=== PATIENT | female | born 1995 | race Caucasian/White ===

== ENCOUNTER → 2017-01-09 | Outpatient (CLI) | payer MEDICAID | LOC: MW.CHOBGYN 14:36 | PROVIDERS: ATTEND Obstetrics & Gynecology | DX: Z34.90 Encounter for supervision of normal pregnancy, unspecified, unspecified trimester (principal) | CPT/HCPCS: 87070; 87491; 87591; G0145 ==

== ENCOUNTER 2017-03-26 00:14 | Emergency (ER) | payer MEDICAID ==
[2017-03-26] MEDS ORDERED: levETIRAcetam Soln 500 MG/5 ML Cup PO ONE (01:27)
[2017-03-26 02:08] LABS: CHLORIDE,CL 112 mmol/L (98-110); SODIUM,NA 141 mmol/L (136-146)
--- NOTE | 2017-03-26 02:21 | EDM.PDOC ---
ED HPI GENERAL MEDICAL PROBLEM - General Chief Complaint: General Stated Complaint: HAD SEIZURE- NOW BACK AND NECK HURT Time Seen by Provider: 03/26/17 01:20 Source of Information: Reports: Patient, Family, RN - History of Present Illness INITIAL COMMENTS - FREE TEXT/NARRATIVE: She had a generalized seizure at home. it lasted about 20 seconds. She has a history of tonic clonic seizures since childhood and stopped taking medicines about two years ago. She has generalized tonic clonic seizures now about 3 x week in the evening. mild posterior upper back muscle pain. - Related Data Allergies Allergy/AdvReac Type Severity Reaction Status Date / Time cinnamon Allergy unsure Verified 03/15/16 00:13 codeine Allergy Anaphylactic Verified 04/10/16 23:21 Shock peanut Allergy Anaphylactic Verified 04/10/16 23:21 Shock Penicillins Allergy Cannot Verified 08/13/16 23:20 Remember Home Meds: Home Meds . 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) Neurological History: Reports: Seizure Psychiatric History: Reports: Anxiety, Bipolar, PTSD - Infectious Disease History Infectious Disease History: Reports: None - Past Surgical History HEENT Surgical History: Reports: None Social & Family History - Family History Family Medical History: Unobtainable - Tobacco Use Smoking Status *Q: Never Smoker Second Hand Smoke Exposure: No - Caffeine Use Caffeine Use: Reports: None - Recreational Drug Use Recreational Drug Use: No ED ROS GENERAL - Review of Systems Review Of Systems: See Below Constitutional: Denies: Fever, Chills HEENT: Denies: Dental Pain Respiratory: Denies: Shortness of Breath, Cough, Sputum Cardiovascular: Denies: Chest Pain GI/Abdominal: Denies: Abdominal Pain, Black Stool, Difficulty Swallowing, Hematemesis, Hematochezia, Nausea ED EXAM, GENERAL - Physical Exam Exam: See Below General Appearance: Alert, No Apparent Distress Nose: Normal Inspection Head: Atraumatic, Normocephalic Neck: Supple, Non-Tender Respiratory/Chest: No Respiratory Distress, Lungs Clear, Normal Breath Sounds Cardiovascular: Regular Rate, Rhythm, No Edema GI/Abdominal: Soft, Non-Tender Neurological: CN II-XII Intact, Normal Cognition Psychiatric: Normal Mood Course - Vital Signs Last Recorded V/S: Last Vital Signs Temp 97.9 F 03/26/17 01:12 Pulse 98 03/26/17 01:12 Resp 18 03/26/17 01:12 BP 135/73 03/26/17 01:12 Pulse Ox 98 03/26/17 01:12 - Orders/Labs/Meds Orders: Active Orders 24 hr Category Date Time Status COMPREHENSIVE METABOLIC PN,CMP [CHEM] Stat Lab 03/26/17 01:40 Results MAGNESIUM [CHEM] Stat Lab 03/26/17 01:40 Results PROLACTIN [CHEM] Stat Lab 03/26/17 01:40 Results Labs: Laboratory Tests 03/26/17 03/26/17 03/26/17 Range/Units 01:40 01:40 01:40 WBC 7.70 (4.0-11.0) K/uL RBC 4.73 (4.30-5.90) M/uL Hgb 10.6 L (12.0-16.0) g/dL Hct 34.6 L (36.0-46.0) % MCV 73.2 L (80.0-98.0) fL MCH 22.4 L (27.0-32.0) pg MCHC 30.6 L (31.0-37.0) g/dL RDW Std Deviation 45.9 (28.0-62.0) fl RDW Coeff of Volodymyr 17 H (11.0-15.0) % Plt Count 287 (150-400) K/uL MPV 10.30 (7.40-12.00) fL Neut % (Auto) 48.6 (48.0-80.0) % Lymph % (Auto) 39.4 (16.0-40.0) % [place] % (Auto) 9.4 (0.0-15.0) % Eos % (Auto) 2.3 (0.0-7.0) % Baso % (Auto) 0.3 (0.0-1.5) % Neut # (Auto) 3.8 (1.4-5.7) K/uL Lymph # (Auto) 3.0 H (0.6-2.4) K/uL [place] # (Auto) 0.7 (0.0-0.8) K/uL Eos # (Auto) 0.2 (0.0-0.7) K/uL Baso # (Auto) 0.0 (0.0-0.1) K/uL Nucleated RBC % 0.0 /100WBC Nucleated RBCs # 0 K/uL Sodium 141 (136-146) mmol/L Potassium 3.9 (3.5-5.1) mmol/L Chloride 112 H (98-110) mmol/L Carbon Dioxide 19 L (21-31) mmol/L BUN 13 (6.0-23.0) mg/dL Creatinine 0.7 (0.6-1.5) mg/dL Est Cr Clr Drug Dosing 91.32 mL/min Estimated GFR (MDRD) > 60.0 ml/min Glucose 97 (60-110) mg/dL Calcium 9.4 (8.8-10.8) mg/dL Magnesium 2.0 (1.5-2.3) mEq/L Total Bilirubin 0.3 (0.1-1.5) mg/dL AST 17 (5-40) IU/L ALT 13 (8-54) IU/L Alkaline Phosphatase 86 (40-150) Total Protein 7.1 (6.0-8.0) g/dL Albumin 4.4 (3.5-5.0) g/dL Globulin 2.7 (2.0-3.5) g/dL Albumin/Globulin Ratio 1.6 (1.3-2.8) HCG, Qual NEGATIVE (NEG) Meds: Medications Discontinued Medications Generic Name Dose Route Start Last Admin Trade Name Nuris PRN Reason Stop Dose Admin Levetiracetam 500 mg 03/26/17 01:27 03/26/17 01:45 Keppra PO 03/26/17 01:28 500 mg NOW ONE Administration - Re-Assessments/Exams Free Text/Narrative Re-Assessment/Exam: 03/26/17 02:20 we discussed avoiding certain risks such as driving and swimming. Departure - Departure Time of Disposition: 02:20 Disposition: Home, Self-Care 01 Condition: good Clinical Impression: Seizure disorder - Discharge Information Forms: ED Department Discharge Additional Instructions: [facility] po bid avoid whilst on keppra - My Orders Last 24 Hours: My Active Orders 03/26/17 01:40 COMPREHENSIVE METABOLIC PN,CMP [CHEM] Stat MAGNESIUM [CHEM] Stat PROLACTIN [CHEM] Stat - Assessment/Plan Last 24 Hours: My Active Orders 03/26/17 01:40 COMPREHENSIVE METABOLIC PN,CMP [CHEM] Stat MAGNESIUM [CHEM] Stat PROLACTIN [CHEM] Stat
[2017-03-26 05:49] VITALS: BP 121/71
== END 2017-03-26 02:37 | disposition home or self-care (01) ==
LOC: MW.ED 00:14
DX: G40.909 Epilepsy, unspecified, not intractable, without status epilepticus (principal); F41.9 Anxiety disorder, unspecified; F31.9 Bipolar disorder, unspecified; Z88.0 Allergy status to penicillin; Z88.5 Allergy status to narcotic agent; Z91.010 Allergy to peanuts
CPT/HCPCS: 36415; 80053; 83735; 84146; 84703; 85025; 99283; A9270; 99284

== ENCOUNTER 2017-03-29 00:58 | Emergency (ER) | payer MEDICAID ==
--- NOTE | 2017-03-29 01:17 | EDM.PDOC ---
ED HPI GENERAL MEDICAL PROBLEM - General Chief Complaint: Behavioral/Psych Stated Complaint: THOUGHTS Time Seen by Provider: 03/29/17 01:11 - History of Present Illness INITIAL COMMENTS - FREE TEXT/NARRATIVE: HISTORY AND PHYSICAL: History of present illness: Patient 1-year-old female history of seizure disorder and depression who presents with a concern of suicidal ideation she's been making suicidal threats for the last week her he is here with her. There's been no attempt she denies any ingestion or other concern. Review of systems: As per history of present illness and below otherwise all systems reviewed and negative. Past medical history: As per history of present illness and as reviewed below otherwise noncontributory. Surgical history: As per history of present illness and as reviewed below otherwise noncontributory. Social history: No reported history of drug or alcohol abuse. Family history: As per history of present illness and as reviewed below otherwise noncontributory. Physical exam: HEENT: Atraumatic, normocephalic, pupils reactive, negative for conjunctival pallor or scleral icterus, mucous membranes moist, throat clear, neck supple, nontender, trachea midline. Lungs: Clear to auscultation, breath sounds equal bilaterally, chest nontender. Heart: S1S2, regular, negative for clicks, rubs, or JVD. Abdomen: Soft, nondistended, nontender. Negative for masses or hepatosplenomegaly. Negative for costovertebral tenderness. Pelvis: Stable nontender. Genitourinary: Deferred. Rectal: Deferred. Extremities: Atraumatic, negative for cords or calf pain. Neurovascular unremarkable. Neuro: Awake, alert, oriented. Cranial nerves II through XII unremarkable. Cerebellum unremarkable. Motor and sensory unremarkable throughout. Exam nonfocal. Diagnostics: CBC CMP hCG urine drug screen EtOH Therapeutics: None Impression: #1 depressive episode with suicidal ideation Definitive disposition and diagnosis as appropriate pending reevaluation and review of above. - Related Data Allergies Allergy/AdvReac Type Severity Reaction Status Date / Time cinnamon Allergy unsure Verified 03/29/17 01:08 codeine Allergy Anaphylactic Verified 03/29/17 01:08 Shock peanut Allergy Anaphylactic Verified 03/29/17 01:08 Shock Penicillins Allergy Cannot Verified 03/29/17 01:08 Remember Home Meds: Home Meds Albuterol [IJD: Ventolin HFA] 1 - 2 puff INH Q4H PRN 03/29/17 [History] levETIRAcetam [Levetiracetam] 500 mg PO BID 03/29/17 [History] Past Medical History HEENT History: Reports: None Cardiovascular History: Reports: None Respiratory History: Reports: Asthma Gastrointestinal History: Reports: None Genitourinary History: Reports: None 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: , 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 , 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 ED EXAM, GENERAL - Physical Exam Exam: See Below (See dictation) Course - Vital Signs Last Recorded V/S: Last Vital Signs Temp 36.6 C 03/29/17 01:04 Pulse 92 03/29/17 01:04 Resp 18 03/29/17 01:04 BP 132/84 03/29/17 01:04 Pulse Ox 98 03/29/17 01:04 - Orders/Labs/Meds Orders: Active Orders 24 hr Category Date Time Status EKG 12 Lead [EKG Documentation Completion] [RC] STAT Care 03/29/17 01:13 Active ACETAMINOPHEN [CHEM] Stat Lab 03/29/17 01:11 Ordered CBC WITH AUTO DIFF [HEME] Stat Lab 03/29/17 01:11 Ordered COMPREHENSIVE METABOLIC PN,CMP [CHEM] Stat Lab 03/29/17 01:11 Ordered DRUG SCREEN, URINE [URCHEM] Stat Lab 03/29/17 01:11 Uncollected ETHANOL BLOOD MEDICAL [CHEM] Stat Lab 03/29/17 01:11 Ordered FREE T3 [REF] Stat Lab 03/29/17 01:14 Ordered HCG QUALITATIVE,URINE [URCHEM] Stat Lab 03/29/17 01:11 Uncollected MAGNESIUM [CHEM] Stat Lab 03/29/17 01:14 Ordered SALICYLATE [CHEM] Stat Lab 03/29/17 01:11 Ordered T4 FREE [CHEM] Stat Lab 03/29/17 01:11 Ordered TSH [CHEM] Stat Lab 03/29/17 01:11 Ordered UA W/MICROSCOPIC [URIN] Stat Lab 03/29/17 01:14 Uncollected Departure - Departure Time of Disposition: Disposition: DC/Tfer to Psych Hosp/Unit 65 Condition: good Clinical Impression: Depressive disorder - Discharge Information Forms: ED Department Discharge - My Orders Last 24 Hours: My Active Orders 03/29/17 01:11 ACETAMINOPHEN [CHEM] Stat CBC WITH AUTO DIFF [HEME] Stat COMPREHENSIVE METABOLIC PN,CMP [CHEM] Stat DRUG SCREEN, URINE [URCHEM] Stat ETHANOL BLOOD MEDICAL [CHEM] Stat HCG QUALITATIVE,URINE [URCHEM] Stat SALICYLATE [CHEM] Stat T4 FREE [CHEM] Stat TSH [CHEM] Stat 03/29/17 01:13 EKG 12 Lead [EKG Documentation Completion] [RC] STAT 03/29/17 01:14 FREE T3 [REF] Stat MAGNESIUM [CHEM] Stat UA W/MICROSCOPIC [URIN] Stat - Assessment/Plan Last 24 Hours: My Active Orders 03/29/17 01:11 ACETAMINOPHEN [CHEM] Stat CBC WITH AUTO DIFF [HEME] Stat COMPREHENSIVE METABOLIC PN,CMP [CHEM] Stat DRUG SCREEN, URINE [URCHEM] Stat ETHANOL BLOOD MEDICAL [CHEM] Stat HCG QUALITATIVE,URINE [URCHEM] Stat SALICYLATE [CHEM] Stat T4 FREE [CHEM] Stat TSH [CHEM] Stat 03/29/17 01:13 EKG 12 Lead [EKG Documentation Completion] [RC] STAT 03/29/17 01:14 FREE T3 [REF] Stat MAGNESIUM [CHEM] Stat UA W/MICROSCOPIC [URIN] Stat
[2017-03-29 01:53] LABS: CHLORIDE,CL 112 mmol/L (98-110); SODIUM,NA 140 mmol/L (136-146)
[2017-03-29 02:03] LABS: ACETAMINOPHEN < 3.0 ug/mL
[2017-03-29 02:41] VITALS: BP 128/78
== END 2017-03-29 02:14 ==
LOC: MW.ED 00:58
DX: F32.9 Major depressive disorder, single episode, unspecified (principal); R45.851 Suicidal ideations; F41.9 Anxiety disorder, unspecified; J45.909 Unspecified asthma, uncomplicated; G40.909 Epilepsy, unspecified, not intractable, without status epilepticus; Z88.0 Allergy status to penicillin; Z91.010 Allergy to peanuts; Z88.8 Allergy status to other drugs, medicaments and biological substances; Z88.5 Allergy status to narcotic agent; F31.9 Bipolar disorder, unspecified; F43.10 Post-traumatic stress disorder, unspecified
CPT/HCPCS: 36415; 80053; 80305; 81001; 81025; 83735; 84443; 84481; 85025; 93005; 99285; G0480

== ENCOUNTER 2017-04-24 11:50 | Emergency (ER) | payer MEDICAID ==
[2017-04-24] MEDS ORDERED: diphenhydrAMINE 50 MG/ML SDV IVPUSH ONE (11:51)
[2017-04-24] MEDS ORDERED: methylPREDNISolone Sodium Succinate 125 MG/2 ML SDV IVPUSH ONE (11:51)
[2017-04-24] MEDS ORDERED: EPINEPHrine 1:1000 1 MG/1 ML Amp SUBCUT ONE (12:02)
[2017-04-24] MEDS ORDERED: EPINEPHrine 1:1000 1 MG/ML SDV IM ONE (12:02)
[2017-04-24] MEDS: Sodium Chloride 0.9% 1,000 ML IV ONE ×2 (12:08→13:13)
[2017-04-24] MEDS ORDERED: LORazepam 2 MG/ML MDV IVPUSH ONE (12:10)
--- NOTE | 2017-04-24 12:59 | EDM.PDOC ---
ED HPI GENERAL MEDICAL PROBLEM - General Chief Complaint: General Stated Complaint: SOB Time Seen by Provider: 04/24/17 11:55 Source of Information: Reports: Patient History Limitations: Reports: No Limitations - History of Present Illness INITIAL COMMENTS - FREE TEXT/NARRATIVE: History of present illness: 21-year-old female comes in indicating that she had been exposed to an allergen. Patient indicates she is allergic to peanuts and had eaten some ice cream which she subsequently discovered had peanuts in it. She indicates she feels shortness of breath itching and feels like she is having some difficulty swallowing her own saliva. Review of systems: As per history of present illness and below otherwise all systems reviewed and negative. Past medical history: As per history of present illness and as reviewed below otherwise noncontributory. Surgical history: As per history of present illness and as reviewed below otherwise noncontributory. Social history: No reported history of drug or alcohol abuse. Family history: As per history of present illness and as reviewed below otherwise noncontributory. Physical exam: HEENT: Atraumatic, normocephalic, pupils reactive, negative for conjunctival pallor or scleral icterus, mucous membranes moist, throat clear, neck supple, nontender, trachea midline. Lungs: Clear to auscultation, breath sounds equal bilaterally, chest nontender. Heart: S1S2, regular, negative for clicks, rubs, or JVD. Abdomen: Soft, nondistended, nontender. Negative for masses or hepatosplenomegaly. Negative for costovertebral tenderness. Pelvis: Stable nontender. Genitourinary: Deferred. Rectal: Deferred. Extremities: Atraumatic, negative for cords or calf pain. Neurovascular unremarkable. Neuro: Awake, alert, oriented. Cranial nerves II through XII unremarkable. Cerebellum unremarkable. Motor and sensory unremarkable throughout. Exam nonfocal. Patient presents tachypneic and tachycardic as well as diaphoretic. Patient is anxious and breathing very shallowly, but can be redirected to breathe slower and deeper. Patient is clearly anxious and has a history of anxiety and panic attacks, as well as seizure disorder. Diagnostics: [] Therapeutics: [Solu-Medrol, Benadryl, appendectomy, normal saline, Ativan] Impression: [Anxiety, shortness of breath] Plan: [Establish care with a PCP avoid allergens] Definitive disposition and diagnosis as appropriate pending reevaluation and review of above. - Related Data Allergies Allergy/AdvReac Type Severity Reaction Status Date / Time cinnamon Allergy unsure Verified 03/29/17 01:08 codeine Allergy Anaphylactic Verified 03/29/17 01:08 Shock peanut Allergy Anaphylactic Verified 03/29/17 01:08 Shock Penicillins Allergy Cannot Verified 03/29/17 01:08 Remember Home Meds: Home Meds Albuterol [IJD: Ventolin HFA] 1 - 2 puff INH Q4H PRN 03/29/17 [History] levETIRAcetam [Levetiracetam] 500 mg PO BID 03/29/17 [History] Past Medical History HEENT History: Reports: None Cardiovascular History: Reports: None Respiratory History: Reports: Asthma Gastrointestinal History: Reports: None Genitourinary History: Reports: None 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: , 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 , 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) Neurological History: Reports: Seizure Other Neuro History: Epilepsy Psychiatric History: Reports: Anxiety, Bipolar, Depression, PTSD - Infectious Disease History Infectious Disease History: Reports: None - Past Surgical History HEENT Surgical History: Reports: None Social & Family History - Family History Family Medical History: Noncontributory - Tobacco Use Smoking Status *Q: Never Smoker Second Hand Smoke Exposure: Yes - Caffeine Use Caffeine Use: Reports: Tea - Recreational Drug Use Recreational Drug Use: No ED ROS GENERAL - Review of Systems Review Of Systems: See Below (See history of present illness) ED EXAM, GENERAL - Physical Exam Exam: See Below (See history of present illness) Course - Vital Signs Last Recorded V/S: Last Vital Signs Temp 36.6 C 04/24/17 11:56 Pulse 140 H 04/24/17 11:56 Resp 48 H 04/24/17 11:56 BP 149/87 H 04/24/17 11:56 Pulse Ox 100 04/24/17 11:56 - Orders/Labs/Meds Meds: Medications Discontinued Medications Generic Name Dose Route Start Last Admin Trade Name Freq PRN Reason Stop Dose Admin Diphenhydramine HCl 50 mg 04/24/17 11:51 04/24/17 12:03 Benadryl IVPUSH 04/24/17 11:52 50 mg ONETIME ONE Administration Epinephrine HCl 0.3 mg 04/24/17 12:02 04/24/17 12:05 Adrenalin 1:1000 IM 04/24/17 12:03 Not Given ONETIME ONE Epinephrine HCl 0.3 mg 04/24/17 12:02 04/24/17 12:03 Adrenalin 1:1000 SUBCUT 04/24/17 12:03 0.3 mg ONETIME ONE Administration Sodium Chloride 1,000 mls @ 999 mls/hr 04/24/17 12:06 04/24/17 13:13 Normal Saline IV 04/24/17 13:06 999 mls/hr .Bolus ONE Administration Lorazepam 1 mg 04/24/17 12:10 04/24/17 12:15 Ativan IVPUSH 04/24/17 12:11 1 mg ONETIME ONE Administration Methylprednisolone Sodium Succinate 125 mg 04/24/17 11:51 04/24/17 12:03 Solu-Medrol IVPUSH 04/24/17 11:52 125 mg ONETIME ONE Administration Departure - Departure Time of Disposition: 13:58 Disposition: Home, Self-Care 01 Condition: Good Clinical Impression: Anxiety, Dyspnea - Discharge Information Instructions: Allergies Additional Instructions: The following information is given to patients seen in the emergency department who are being discharged to home. This information is to outline your options for follow-up care. We provide all patients seen in our emergency department with a follow-up referral. The need for follow-up, as well as the timing and circumstances, are variable depending upon the specifics of your emergency department visit. If you don't have a primary care physician on staff, we will provide you with a referral. We always advise you to contact your personal physician following an emergency department visit to inform them of the circumstance of the visit and for follow-up with them and/or the need for any referrals to a consulting specialist. The emergency department will also refer you to a specialist when appropriate. This referral assures that you have the opportunity for follow-up care with a specialist. All of these measure are taken in an effort to provide you with optimal care, which includes your follow-up. Under all circumstances we always encourage you to contact your private physician who remains a resource for coordinating your care. When calling for follow-up care, please make the office aware that this follow-up is from your recent emergency room visit. If for any reason you are refused follow-up, please contact the [facility] Emergency Department at and asked to speak to the emergency department charge nurse. Follow-up with primary care provider in 1-2 days Return to ED as needed as discussed
[2017-04-24 14:21] VITALS: BP 114/74
== END 2017-04-24 14:30 | disposition home or self-care (01) ==
LOC: MW.ED 11:50
DX: F41.9 Anxiety disorder, unspecified (principal); J45.909 Unspecified asthma, uncomplicated; F31.9 Bipolar disorder, unspecified; G40.909 Epilepsy, unspecified, not intractable, without status epilepticus; Z88.0 Allergy status to penicillin; Z88.5 Allergy status to narcotic agent; Z91.010 Allergy to peanuts; Z91.018 Allergy to other foods
CPT/HCPCS: 96361; 96372; 96374; 96375; 99285; J0171; J1200; J2060; J2930; J7040; 99283

== ENCOUNTER 2017-05-31 23:44 | Emergency (ER) | payer MEDICAID ==
--- NOTE | 2017-05-31 23:47 | EDM.PDOC ---
ED HPI GENERAL MEDICAL PROBLEM - General Chief Complaint: Behavioral/Psych Stated Complaint: SUICIDAL Time Seen by Provider: 05/31/17 23:47 Source of Information: Reports: Patient - History of Present Illness INITIAL COMMENTS - FREE TEXT/NARRATIVE: HISTORY AND PHYSICAL: History of present illness: []Patient presents with suicide attempt by ingestion indeterminant time, his she admits to taking 5-10 Pristiq tablets throughout the day in an attempt to kill herself unknown dosing at time of dictation I'm not sure who called the ambulance she did arrive by ambulance as she also had a knife and was threatening to cut her wrists She has previous suicide attempt or ideation and was transferred to [facility] and subsequently admitted Currently she is alert and oriented in no distress no fever nausea vomiting chills sweats no chest pain shortness breath headache dizziness or palpitation no bowel or urine symptoms History of anxiety and depression on Pristiq Review of systems: As per history of present illness and below otherwise all systems reviewed and negative. Past medical history: As per history of present illness and as reviewed below otherwise noncontributory. Surgical history: As per history of present illness and as reviewed below otherwise noncontributory. Social history: No reported history of drug or alcohol abuse. Family history: As per history of present illness and as reviewed below otherwise noncontributory. Physical exam: HEENT: Atraumatic, normocephalic, pupils reactive, negative for conjunctival pallor or scleral icterus, mucous membranes moist, throat clear, neck supple, nontender, trachea midline. Lungs: Clear to auscultation, breath sounds equal bilaterally, chest nontender. Heart: S1S2, regular, negative for clicks, rubs, or JVD. Abdomen: Soft, nondistended, nontender. Negative for masses or hepatosplenomegaly. Negative for costovertebral tenderness. Pelvis: Stable nontender. Genitourinary: Deferred. Rectal: Deferred. Extremities: Atraumatic, negative for cords or calf pain. Neurovascular unremarkable. Neuro: Awake, alert, oriented. Cranial nerves II through XII unremarkable. Cerebellum unremarkable. Motor and sensory unremarkable throughout. Exam nonfocal. Diagnostics: []IIIc workup EKG Chest 1 view Therapeutics: []None Initially patient to be transferred to [facility] in mind that however they did not have any adult female beds Hence Dr. REYNA as psychiatrist on-call at [facility] in [place] has accepted care patient be transferred with a 24-hour hold in place Impression: []Suicide ideation Martha at side attempt by ingestion Threatening to cut her wrists Previous psychiatric admission History of anxiety and depression Definitive disposition and diagnosis as appropriate pending reevaluation and review of above. - Related Data Allergies Allergy/AdvReac Type Severity Reaction Status Date / Time cinnamon Allergy unsure Verified 05/31/17 23:51 codeine Allergy Anaphylactic Verified 05/31/17 23:51 Shock peanut Allergy Anaphylactic Verified 05/31/17 23:51 Shock Penicillins Allergy Cannot Verified 05/31/17 23:51 Remember Home Meds: Home Meds Albuterol [IJD: Ventolin HFA] 1 - 2 puff INH Q4H PRN 03/29/17 [History] levETIRAcetam [Levetiracetam] 500 mg PO BID 03/29/17 [History] Desvenlafaxine Succinate [Desvenlafaxine Succinate ER] 1 tab PO DAILY 05/31/17 [ History] Past Medical History HEENT History: Reports: None Cardiovascular History: Reports: None Respiratory History: Reports: Asthma Gastrointestinal History: Reports: None Genitourinary History: Reports: None [employer] History: Reports: , Therapeutic , 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) Neurological History: Reports: Seizure Other Neuro History: Epilepsy Psychiatric History: Reports: Anxiety, Bipolar, Depression, PTSD - Infectious Disease History Infectious Disease History: Reports: None - Past Surgical History HEENT Surgical History: Reports: None Social & Family History - Family History Family Medical History: Noncontributory - Tobacco Use Smoking Status *Q: Never Smoker Second Hand Smoke Exposure: Yes - Caffeine Use Caffeine Use: Reports: Tea - Recreational Drug Use Recreational Drug Use: No ED ROS GENERAL - Review of Systems Review Of Systems: ROS reveals no pertinent complaints other than HPI. ED EXAM, GENERAL - Physical Exam Exam: See Below Course - Vital Signs Last Recorded V/S: Last Vital Signs Temp 36.6 C 05/31/17 23:44 Pulse 109 H 05/31/17 23:44 Resp 20 05/31/17 23:44 BP 140/88 05/31/17 23:44 Pulse Ox 98 05/31/17 23:44 - Orders/Labs/Meds Orders: Active Orders 24 hr Category Date Time Status EKG Documentation Completion [RC] STAT Care 05/31/17 23:46 Active Chest 1V Frontal [CR] Stat Exams 05/31/17 23:46 Ordered Labs: Laboratory Tests 05/31/17 05/31/17 05/31/17 Range/Units 23:57 23:57 23:57 WBC 8.34 (4.0-11.0) K/uL RBC 4.98 (4.30-5.90) M/uL Hgb 11.3 L (12.0-16.0) g/dL Hct 36.4 (36.0-46.0) % MCV 73.1 L (80.0-98.0) fL MCH 22.7 L (27.0-32.0) pg MCHC 31.0 (31.0-37.0) g/dL RDW Std Deviation 45.2 (28.0-62.0) fl RDW Coeff of Volodymyr 17 H (11.0-15.0) % Plt Count 271 (150-400) K/uL MPV 10.10 (7.40-12.00) fL Neut % (Auto) 69.2 (48.0-80.0) % Lymph % (Auto) 23.7 (16.0-40.0) % Webster % (Auto) 6.2 (0.0-15.0) % Eos % (Auto) 0.7 (0.0-7.0) % Baso % (Auto) 0.2 (0.0-1.5) % Neut # (Auto) 5.8 H (1.4-5.7) K/uL Lymph # (Auto) 2.0 (0.6-2.4) K/uL Webster # (Auto) 0.5 (0.0-0.8) K/uL Eos # (Auto) 0.1 (0.0-0.7) K/uL Baso # (Auto) 0.0 (0.0-0.1) K/uL Nucleated RBC % 0.0 /100WBC Nucleated RBCs # 0 K/uL Sodium 141 (136-146) mmol/L Potassium 3.6 (3.5-5.1) mmol/L Chloride 112 H (98-110) mmol/L Carbon Dioxide 20 L (21-31) mmol/L BUN 14 (6.0-23.0) mg/dL Creatinine 0.8 (0.6-1.5) mg/dL Est Cr Clr Drug Dosing 79.90 mL/min Estimated GFR (MDRD) > 60.0 ml/min Glucose 92 (60-110) mg/dL Calcium 9.6 (8.8-10.8) mg/dL Total Bilirubin 0.3 (0.1-1.5) mg/dL AST 17 (5-40) IU/L ALT 15 (8-54) IU/L Alkaline Phosphatase 79 (40-150) Troponin I < 0.10 (0.0-0.29) NG/ML Total Protein 7.6 (6.0-8.0) g/dL Albumin 4.5 (3.5-5.0) g/dL Globulin 3.1 (2.0-3.5) g/dL Albumin/Globulin Ratio 1.5 (1.3-2.8) TSH 3rd Generation 1.18 (0.47-5.0) uIU/mL Urine Color Urine Appearance Urine pH (5.0-8.0) Ur Specific [place] (1.001-1.035) Urine Protein (NEGATIVE) mg/dL Urine Glucose (UA) (NEGATIVE) mg/dL Urine Ketones (NEGATIVE) mg/dL Urine Occult Blood (NEGATIVE) Urine Nitrite (NEGATIVE) Urine Bilirubin (NEGATIVE) Urine Urobilinogen (<2.0) EU/dL Ur Leukocyte Esterase (NEGATIVE) Urine RBC (0-2/HPF) Urine WBC (0-5/HPF) Ur Epithelial Cells (NONE-FEW) Urine Bacteria (NEGATIVE) Urine HCG, Qual (NEGATIVE) Salicylates < 5.0 (0-20) mg/dL Urine Opiates Screen (NEGATIVE) Ur Oxycodone Screen (NEGATIVE) Urine Methadone Screen (NEGATIVE) Acetaminophen < 3.0 ug/mL Ur Barbiturates Screen (NEGATIVE) Ur Phencyclidine Scrn (NEGATIVE) Ur Amphetamine Screen (NEGATIVE) U Methamphetamines Scrn (NEGATIVE) U Benzodiazepines Scrn (NEGATIVE) U Cocaine Metab Screen (NEGATIVE) U Marijuana (THC) Screen (NEGATIVE) Ethyl Alcohol < 10.0 mg/dL 06/01/17 06/01/17 06/01/17 Range/Units 00:22 00:22 00:22 WBC (4.0-11.0) K/uL RBC (4.30-5.90) M/uL Hgb (12.0-16.0) g/dL Hct (36.0-46.0) % MCV (80.0-98.0) fL MCH (27.0-32.0) pg MCHC (31.0-37.0) g/dL RDW Std Deviation (28.0-62.0) fl RDW Coeff of Volodymyr (11.0-15.0) % Plt Count (150-400) K/uL MPV (7.40-12.00) fL Neut % (Auto) (48.0-80.0) % Lymph % (Auto) (16.0-40.0) % Webster % (Auto) (0.0-15.0) % Eos % (Auto) (0.0-7.0) % Baso % (Auto) (0.0-1.5) % Neut # (Auto) (1.4-5.7) K/uL Lymph # (Auto) (0.6-2.4) K/uL Webster # (Auto) (0.0-0.8) K/uL Eos # (Auto) (0.0-0.7) K/uL Baso # (Auto) (0.0-0.1) K/uL Nucleated RBC % /100WBC Nucleated RBCs # K/uL Sodium (136-146) mmol/L Potassium (3.5-5.1) mmol/L Chloride (98-110) mmol/L Carbon Dioxide (21-31) mmol/L BUN (6.0-23.0) mg/dL Creatinine (0.6-1.5) mg/dL Est Cr Clr Drug Dosing mL/min Estimated GFR (MDRD) ml/min Glucose (60-110) mg/dL Calcium (8.8-10.8) mg/dL Total Bilirubin (0.1-1.5) mg/dL AST (5-40) IU/L ALT (8-54) IU/L Alkaline Phosphatase (40-150) Troponin I (0.0-0.29) NG/ML Total Protein (6.0-8.0) g/dL Albumin (3.5-5.0) g/dL Globulin (2.0-3.5) g/dL Albumin/Globulin Ratio (1.3-2.8) TSH 3rd Generation (0.47-5.0) uIU/mL Urine Color YELLOW Urine Appearance CLEAR Urine pH 5.5 (5.0-8.0) Ur Specific [place] >= 1.030 (1.001-1.035) Urine Protein 30 (NEGATIVE) mg/dL Urine Glucose (UA) NEGATIVE (NEGATIVE) mg/dL Urine Ketones 15 H (NEGATIVE) mg/dL Urine Occult Blood LARGE H (NEGATIVE) Urine Nitrite NEGATIVE (NEGATIVE) Urine Bilirubin NEGATIVE (NEGATIVE) Urine Urobilinogen 0.2 (<2.0) EU/dL Ur Leukocyte Esterase NEGATIVE (NEGATIVE) Urine RBC 40-50 (0-2/HPF) Urine WBC 0-3 (0-5/HPF) Ur Epithelial Cells OCCASIONAL (NONE-FEW) Urine Bacteria FEW (NEGATIVE) Urine HCG, Qual NEGATIVE (NEGATIVE) Salicylates (0-20) mg/dL Urine Opiates Screen NEGATIVE (NEGATIVE) Ur Oxycodone Screen NEGATIVE (NEGATIVE) Urine Methadone Screen NEGATIVE (NEGATIVE) Acetaminophen ug/mL Ur Barbiturates Screen NEGATIVE (NEGATIVE) Ur Phencyclidine Scrn NEGATIVE (NEGATIVE) Ur Amphetamine Screen NEGATIVE (NEGATIVE) U Methamphetamines Scrn NEGATIVE (NEGATIVE) U Benzodiazepines Scrn NEGATIVE (NEGATIVE) U Cocaine Metab Screen NEGATIVE (NEGATIVE) U Marijuana (THC) Screen NEGATIVE (NEGATIVE) Ethyl Alcohol mg/dL Departure - Departure Time of Disposition: 00:54 Disposition: DC/Tfer to Other 70 Condition: Fair Clinical Impression: Suicide attempt by drug ingestion - Discharge Information Forms: ED Department Discharge - My Orders Last 24 Hours: My Active Orders 05/31/17 23:46 EKG Documentation Completion [RC] STAT Chest 1V Frontal [CR] Stat - Assessment/Plan Last 24 Hours: My Active Orders 05/31/17 23:46 EKG Documentation Completion [RC] STAT Chest 1V Frontal [CR] Stat
[2017-06-01 00:25] LABS: CHLORIDE,CL 112 mmol/L (98-110); SODIUM,NA 141 mmol/L (136-146)
[2017-06-01 00:33] LABS: ACETAMINOPHEN < 3.0 ug/mL
[2017-06-01 01:52] VITALS: BP 122/82
--- NOTE | 2017-06-01 15:21 | CR ---
EXAM DATE: 05/31/17 PATIENT'S AGE: 21 Patient: DAVID LIRIANO Facility: [place], [place] Site . Site : 1995 Study: XRay Chest [id number]/[id number] 12:53:29 AM Ordering Physician: Mary Hull Final Report: Indication: Pain Technique: Chest 1 view Comparison: None Findings/Impression: Cardiovascular and mediastinum: Heart size and vasculature are normal in caliber and appearance. Mediastinum is within normal limits. Lungs and pleural space: Lungs are clear. No sign of infiltrate or mass. No sign of pleural effusion. No pneumothorax. Bones and soft tissues: No significant findings. Dictated by Soledad Mccarty MD @ Jun 01 2017 1:07AM (Electronic Signature) Report Signed by Proxy. ENRIQUE
== END 2017-06-01 01:40 | disposition other institution (70) ==
LOC: MW.ED 23:44
DX: T43.212A Poisoning by selective serotonin and norepinephrine reuptake inhibitors, intentional self-harm, initial encounter (principal); J45.909 Unspecified asthma, uncomplicated; Z91.010 Allergy to peanuts; Z88.0 Allergy status to penicillin; Z91.018 Allergy to other foods
CPT/HCPCS: 36415; 71010; 80053; 80305; 81001; 81025; 84443; 84484; 85025; 93005; 99285; G0480

== ENCOUNTER 2017-06-04 22:16 | Emergency (ER) | payer MEDICAID ==
[2017-06-04] MEDS ORDERED: Sodium Chloride 0.9% 2.5 ML Syringe FLUSH PRN (22:27)
[2017-06-04] MEDS ORDERED: Ondansetron 4 MG/2 ML SDV IVPUSH ONE (22:27)
[2017-06-04] MEDS ORDERED: Sodium Chloride 0.9% 10 ML Syringe FLUSH PRN (22:27)
[2017-06-04] MEDS ORDERED: Sodium Chloride 0.9% 1,000 ML IV ONE (22:27)
[2017-06-04] MEDS ORDERED: Ondansetron 4 MG/2 ML SDV ONE (22:28)
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
[2017-06-04] MEDS: levETIRAcetam Soln 500 MG/5 ML Cup PO ONE (22:59)
[2017-06-04 23:04] LABS: CHLORIDE,CL 117 mmol/L (98-110); SODIUM,NA 146 mmol/L (136-146)
[2017-06-04 23:12] LABS: ACETAMINOPHEN < 3.0 ug/mL
[2017-06-05] MEDS: levETIRAcetam Soln 500 MG/5 ML Cup PO ONE (00:30)
--- NOTE | 2017-06-05 01:23 | EDM.PDOCBH ---
ED HPI GENERAL MEDICAL PROBLEM - General Chief Complaint: Behavioral/Psych Stated Complaint: UNK Time Seen by Provider: 06/04/17 22:26 - History of Present Illness INITIAL COMMENTS - FREE TEXT/NARRATIVE: HISTORY AND PHYSICAL: History of present illness: The patient is a 21-year-old female with a known history of seizures and depression with 2 prior transfers documented on the computer from here for suicidal ideation/attempt the last one being 4 days ago when she was transferred to [facility]; patient presents today via EMS with police after they were dispatched for depression and inappropriate statements and texts. According to the patient she was transferred from here to [facility] on May 31 and spent 3 days of the institution where they stopped her Pristiq increased her Keppra and did not restart her on any antidepressants and she has a follow-up appointment scheduled for behavioral health outpatient care on Thursday and also has a follow-up appointment to address her seizure disorder. According to police they have been at her house 2 times today after being contacted by boyfriend and friend regarding her possible increasing depression and potential inappropriate statements regarding her future. According to the patient she has no suicidal or homicidal ideation and is very stressed by not having a job and issues with her boyfriend. According to the patient she was trying to get some of her medication out of his car when he closed the door on her hand and she complains of left hand and elbow pain. The ED. The patient denies taking any overdose of pills or trying to hurt herself today. The patient admits to me that she has made statements that could be misconstrued either via telephone or be attacks but she exhibits concern about her well- being and she states that she is excited to start outpatient care and be able to talk about some of the issues that are going on in her life. She is concerned about having another seizure and wants to take her evening dose of medications. She denies any drug use tonight and says that she has no social network here other than her boyfriend and some of his associates. The police liaison at bedside with the officer responding both times to her house and states that she did exhibit emotional behavior and bordered on making very inappropriate statements which is why he was concerned as well as his firearms assembly supervisor. In light of her recent history she was brought here for evaluation for further care. According to the police liaison she did have a brief seizure in the back of his car prior to coming here and EMS aching her up to bring her here. She is currently somewhat quiet in the ED. Review of systems: As per history of present illness and below otherwise all systems reviewed and negative. Past medical history: As per history of present illness and as reviewed below otherwise noncontributory. Surgical history: As per history of present illness and as reviewed below otherwise noncontributory. Social history: No reported history of drug or alcohol abuse. Family history: As per history of present illness and as reviewed below otherwise noncontributory. Physical exam: Gen.: Well-developed well-nourished female who is nontoxic and initially when I saw the patient she was not super conversational as she had just finished having a seizure. I did return and have lengthy conversations with this patient once she was more awake and alert. Patient did have some dry heaves when I saw her. Affect: The patient is very interactive and talkative conversational and hopeful for the future with respect to her health care and connecting with a counselor on Thursday. She exhibits no suicidal or homicidal ideation on my evaluation. HEENT: Atraumatic, normocephalic, pupils reactive, negative for conjunctival pallor or scleral icterus, mucous membranes moist, throat clear, neck supple, nontender, trachea midline. Lungs: Clear to auscultation, breath sounds equal bilaterally, chest nontender. Heart: S1S2, regular rate and rhythm no overt murmurs Abdomen: Soft, nondistended, nontender. Negative for masses or hepatosplenomegaly. Negative for costovertebral tenderness. Pelvis: Stable nontender. Genitourinary: Deferred. Rectal: Deferred. Extremities: Atraumatic except for the dorsal aspect of the left hand where there is a very superficial abrasion and some soft tissue swelling and tenderness without palpable bony deformities. There is a linear superficial scratch on the volar surface of the left forearm which the patient states is several days old. The patient also complains of tenderness to the elbow but not the forearm area and there are no palpable bony deformities here. All other remedies have full range of motion without defects or deficits and the legs are , negative for cords or calf pain. Neurovascular unremarkable. Neuro: Awake, alert, oriented. Cranial nerves II through XII unremarkable. Cerebellum unremarkable. Motor and sensory unremarkable throughout. Exam nonfocal. Skin: No evidence of any rashes or lesions are seen overtly and turgor is normal. Please see the extremity exam for changes there. Diagnostics: EKG CBC CMP aspirin Tylenol and alcohol levels UA UDS UCG x-ray of the left hand and elbow TSH was performed on May 31 and was within normal limits at 1.18 so will not be repeated today Therapeutics: IV O2 monitor IV fluids, patient was offered Zofran as she was having dry heaves earlier but refuses, Keppra by mouth so the patient can get her evening dose. Please note that initially the patient also refuses taking the Keppra that we have ordered only because it is this suspension and not a pill and she feels it will make her vomit. But subsequently she agreed to take it and did have some gagging and dry heaves. Patient now tells me that at [facility] they did increase her dose to 1000 mg and she will take the second 500 mg when she goes home. Patient is aware of x-ray results. When the patient initially arrived and police told me about some of tonight's events and I did not have a chance to have a conversation with the patient I did contact [facility] and speak to the psychiatrist on-call who was not able to offer me much information about her prior visit there. I told him that if she needed to be transferred I would be recontacting them. I had lengthy discussions with both the police liaison that brought her here as well his his firearms assembly supervisor. In light of some of the things that may have occurred in the field that were not witnessed by myself or this officer at bedside the states real estate associate attorney was contacted and it was felt that the decision for transfer or discharge could be made by me and my evaluation of this patient. I feel that the patient is exhibiting no suicidal ideation is a fact trying to exhibit hopefulness for the future. She doesn't fact have many stressors in her life which we discussed and I told her that she needs to return if she is feeling the stressors are altering her ability and perspective for her future. The patient does live alone and the police will conduct a safety check in several hours which the patient is agreeable to an open 2. Impression: Depression with emotional reaction stable, left hand contusion stable Definitive disposition and diagnosis as appropriate pending reevaluation and review of above. - Related Data Allergies Allergy/AdvReac Type Severity Reaction Status Date / Time cinnamon Allergy unsure Verified 06/04/17 22:58 codeine Allergy Anaphylactic Verified 06/04/17 22:58 Shock peanut Allergy Anaphylactic Verified 06/04/17 22:58 Shock Penicillins Allergy Cannot Verified 06/04/17 22:58 Remember Home Meds: Home Meds Albuterol [IJD: Ventolin HFA] 1 - 2 puff INH Q4H PRN 03/29/17 [History] levETIRAcetam [Levetiracetam] 500 mg PO BID 03/29/17 [History] Desvenlafaxine Succinate [Desvenlafaxine Succinate ER] 1 tab PO DAILY 05/31/17 [ History] Past Medical History HEENT History: Reports: None Cardiovascular History: Reports: None Respiratory History: Reports: Asthma Gastrointestinal History: Reports: None Genitourinary History: Reports: None FACILITIES OFFICER History: Reports: , Therapeutic , 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) Other OB/BYN History: 02/04/17, on bc now- last depo shot 2 wks ago Musculoskeletal History: Reports: None Neurological History: Reports: Seizure, 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) Other Neuro History: Epilepsy Psychiatric History: Reports: Anxiety, Bipolar, Depression, PTSD Endocrine/Metabolic History: Reports: None Hematologic History: Reports: None Immunologic History: Reports: None Oncologic (Cancer) History: Reports: None Dermatologic History: Reports: None - Infectious Disease History Infectious Disease History: Reports: None - Past Surgical History Head Surgeries/Procedures: Reports: None HEENT Surgical History: Reports: None Musculoskeletal Surgical History: Reports: None Social & Family History - Family History Family Medical History: Noncontributory Other Dermatologic Family History: pt adopted, unknown fam hx - Tobacco Use Smoking Status *Q: Never Smoker Second Hand Smoke Exposure: Yes - Caffeine Use Caffeine Use: Reports: None - Recreational Drug Use Recreational Drug Use: No ED ROS GENERAL - Review of Systems Review Of Systems: ROS reveals no pertinent complaints other than HPI. ED EXAM, BEHAVIORAL HEALTH - Physical Exam Exam: See Below (See dictation) COURSE, BEHAVIORAL HEALTH COMP - Course Vital Signs: Last Vital Signs Temp 36.4 C 06/05/17 00:10 Pulse 90 06/05/17 00:10 Resp 16 06/05/17 00:10 BP 118/75 06/05/17 00:10 Pulse Ox 100 06/05/17 00:10 Orders, Labs, Meds: Active Orders 24 hr Category Date Time Status Cardiac Monitoring [RC] . DIRECTED Care 06/04/17 22:27 Active EKG Documentation Completion [RC] STAT Care 06/04/17 22:27 Active Oxygen Therapy, ED [RC] ASDIRECTED Care 06/04/17 22:27 Active Pulse Oximetry [RC] ASDIRECTED Care 06/04/17 22:27 Active Elbow 2V Lt [CR] Stat Exams 06/04/17 22:29 Taken Hand 2V Lt [CR] Stat Exams 06/04/17 22:29 Taken Sodium Chloride 0.9% [Saline Flush] Med 06/04/17 22:27 Active 10 ml FLUSH ASDIRECTED PRN Sodium Chloride 0.9% [Saline Flush] Med 06/04/17 22:27 Active 2.5 ml FLUSH ASDIRECTED PRN levETIRAcetam [Keppra] Med 06/05/17 22:35 Once 500 mg PO ONETIME ONE Saline Lock Insert [OM.PC] Stat Oth 06/04/17 22:27 Ordered Medication Orders Levetiracetam (Keppra) 500 mg PO ONETIME ONE Stop: 06/05/17 22:36 Sodium Chloride (Saline Flush) 10 ml FLUSH ASDIRECTED PRN PRN Reason: Keep Vein Open Sodium Chloride (Saline Flush) 2.5 ml FLUSH ASDIRECTED PRN PRN Reason: Keep Vein Open Laboratory Tests 06/04/17 06/04/17 06/04/17 Range/Units 22:35 22:35 22:48 WBC 9.38 (4.0-11.0) K/uL RBC 4.73 (4.30-5.90) M/uL Hgb 10.8 L (12.0-16.0) g/dL Hct 34.5 L (36.0-46.0) % MCV 72.9 L (80.0-98.0) fL MCH 22.8 L (27.0-32.0) pg MCHC 31.3 (31.0-37.0) g/dL RDW Std Deviation 45.1 (28.0-62.0) fl RDW Coeff of Volodymyr 17 H (11.0-15.0) % Plt Count 274 (150-400) K/uL MPV 10.20 (7.40-12.00) fL Neut % (Auto) 75.8 (48.0-80.0) % Lymph % (Auto) 17.2 (16.0-40.0) % Hopkins % (Auto) 5.9 (0.0-15.0) % Eos % (Auto) 0.9 (0.0-7.0) % Baso % (Auto) 0.2 (0.0-1.5) % Neut # (Auto) 7.1 H (1.4-5.7) K/uL Lymph # (Auto) 1.6 (0.6-2.4) K/uL Hopkins # (Auto) 0.6 (0.0-0.8) K/uL Eos # (Auto) 0.1 (0.0-0.7) K/uL Baso # (Auto) 0.0 (0.0-0.1) K/uL Nucleated RBC % 0.0 /100WBC Nucleated RBCs # 0 K/uL Sodium 146 (136-146) mmol/L Potassium 3.3 L (3.5-5.1) mmol/L Chloride 117 H (98-110) mmol/L Carbon Dioxide 19 L (21-31) mmol/L BUN 10 (6.0-23.0) mg/dL Creatinine 0.7 (0.6-1.5) mg/dL Est Cr Clr Drug Dosing 91.32 mL/min Estimated GFR (MDRD) > 60.0 ml/min Glucose 102 (60-110) mg/dL Calcium 9.1 (8.8-10.8) mg/dL Total Bilirubin 0.4 (0.1-1.5) mg/dL AST 18 (5-40) IU/L ALT 14 (8-54) IU/L Alkaline Phosphatase 74 (40-150) Total Protein 7.2 (6.0-8.0) g/dL Albumin 4.4 (3.5-5.0) g/dL Globulin 2.8 (2.0-3.5) g/dL Albumin/Globulin Ratio 1.6 (1.3-2.8) Urine Color Urine Appearance Urine pH (5.0-8.0) Ur Specific [place] (1.001-1.035) Urine Protein (NEGATIVE) mg/dL Urine Glucose (UA) (NEGATIVE) mg/dL Urine Ketones (NEGATIVE) mg/dL Urine Occult Blood (NEGATIVE) Urine Nitrite (NEGATIVE) Urine Bilirubin (NEGATIVE) Urine Urobilinogen (<2.0) EU/dL Ur Leukocyte Esterase (NEGATIVE) Urine RBC (0-2/HPF) Urine WBC (0-5/HPF) Ur Epithelial Cells (NONE-FEW) Urine Bacteria (NEGATIVE) Urine Mucus (NONE-MOD) Urine HCG, Qual (NEGATIVE) Salicylates < 5.0 (0-20) mg/dL Urine Opiates Screen NEGATIVE (NEGATIVE) Ur Oxycodone Screen NEGATIVE (NEGATIVE) Urine Methadone Screen NEGATIVE (NEGATIVE) Acetaminophen < 3.0 ug/mL Ur Barbiturates Screen NEGATIVE (NEGATIVE) Ur Phencyclidine Scrn NEGATIVE (NEGATIVE) Ur Amphetamine Screen NEGATIVE (NEGATIVE) U Methamphetamines Scrn NEGATIVE (NEGATIVE) U Benzodiazepines Scrn NEGATIVE (NEGATIVE) U Cocaine Metab Screen NEGATIVE (NEGATIVE) U Marijuana (THC) Screen NEGATIVE (NEGATIVE) Ethyl Alcohol < 10.0 mg/dL 06/04/17 06/04/17 Range/Units 22:48 22:48 WBC (4.0-11.0) K/uL RBC (4.30-5.90) M/uL Hgb (12.0-16.0) g/dL Hct (36.0-46.0) % MCV (80.0-98.0) fL MCH (27.0-32.0) pg MCHC (31.0-37.0) g/dL RDW Std Deviation (28.0-62.0) fl RDW Coeff of Volodymyr (11.0-15.0) % Plt Count (150-400) K/uL MPV (7.40-12.00) fL Neut % (Auto) (48.0-80.0) % Lymph % (Auto) (16.0-40.0) % Hopkins % (Auto) (0.0-15.0) % Eos % (Auto) (0.0-7.0) % Baso % (Auto) (0.0-1.5) % Neut # (Auto) (1.4-5.7) K/uL Lymph # (Auto) (0.6-2.4) K/uL Hopkins # (Auto) (0.0-0.8) K/uL Eos # (Auto) (0.0-0.7) K/uL Baso # (Auto) (0.0-0.1) K/uL Nucleated RBC % /100WBC Nucleated RBCs # K/uL Sodium (136-146) mmol/L Potassium (3.5-5.1) mmol/L Chloride (98-110) mmol/L Carbon Dioxide (21-31) mmol/L BUN (6.0-23.0) mg/dL Creatinine (0.6-1.5) mg/dL Est Cr Clr Drug Dosing mL/min Estimated GFR (MDRD) ml/min Glucose (60-110) mg/dL Calcium (8.8-10.8) mg/dL Total Bilirubin (0.1-1.5) mg/dL AST (5-40) IU/L ALT (8-54) IU/L Alkaline Phosphatase (40-150) Total Protein (6.0-8.0) g/dL Albumin (3.5-5.0) g/dL Globulin (2.0-3.5) g/dL Albumin/Globulin Ratio (1.3-2.8) Urine Color YELLOW Urine Appearance CLEAR Urine pH 6.0 (5.0-8.0) Ur Specific [place] >= 1.030 (1.001-1.035) Urine Protein 30 (NEGATIVE) mg/dL Urine Glucose (UA) NEGATIVE (NEGATIVE) mg/dL Urine Ketones TRACE H (NEGATIVE) mg/dL Urine Occult Blood LARGE H (NEGATIVE) Urine Nitrite NEGATIVE (NEGATIVE) Urine Bilirubin NEGATIVE (NEGATIVE) Urine Urobilinogen 0.2 (<2.0) EU/dL Ur Leukocyte Esterase NEGATIVE (NEGATIVE) Urine RBC 50-75 H (0-2/HPF) Urine WBC 0-2 (0-5/HPF) Ur Epithelial Cells RARE (NONE-FEW) Urine Bacteria RARE (NEGATIVE) Urine Mucus LIGHT (NONE-MOD) Urine HCG, Qual NEGATIVE (NEGATIVE) Salicylates (0-20) mg/dL Urine Opiates Screen (NEGATIVE) Ur Oxycodone Screen (NEGATIVE) Urine Methadone Screen (NEGATIVE) Acetaminophen ug/mL Ur Barbiturates Screen (NEGATIVE) Ur Phencyclidine Scrn (NEGATIVE) Ur Amphetamine Screen (NEGATIVE) U Methamphetamines Scrn (NEGATIVE) U Benzodiazepines Scrn (NEGATIVE) U Cocaine Metab Screen (NEGATIVE) U Marijuana (THC) Screen (NEGATIVE) Ethyl Alcohol mg/dL Medications Generic Name Dose Route Start Last Admin Trade Name Freq PRN Reason Stop Dose Admin Levetiracetam 500 mg 06/05/17 22:35 Keppra PO 06/05/17 22:36 ONETIME ONE Sodium Chloride 10 ml 06/04/17 22:27 Saline Flush FLUSH ASDIRECTED PRN Keep Vein Open Sodium Chloride 2.5 ml 06/04/17 22:27 Saline Flush FLUSH ASDIRECTED PRN Keep Vein Open Discontinued Medications Generic Name Dose Route Start Last Admin Trade Name Freq PRN Reason Stop Dose Admin Sodium Chloride 1,000 mls @ 999 mls/hr 06/04/17 22:27 06/04/17 22:32 Normal Saline IV 06/04/17 23:27 999 mls/hr STAT ONE Administration Levetiracetam 500 mg 06/04/17 22:52 06/04/17 22:59 Keppra PO 06/04/17 22:53 Not Given NOW ONE Ondansetron HCl 4 mg 06/04/17 22:27 06/04/17 22:32 Zofran IVPUSH 06/04/17 22:28 Not Given ONETIME ONE Ondansetron HCl Confirm 06/04/17 22:28 06/04/17 22:33 Zofran Administered 06/04/17 22:29 Not Given Dose 4 mg .ROUTE .STK-MED ONE Departure - Departure Time of Disposition: 01:23 Disposition: Home, Self-Care 01 Condition: Good Clinical Impression: Emotional stress reaction, Depressive disorder - Discharge Information Forms: ED Department Discharge Additional Instructions: The following information is given to patients seen in the emergency department who are being discharged to home. This information is to outline your options for follow-up care. We provide all patients seen in our emergency department with a follow-up referral. The need for follow-up, as well as the timing and circumstances, are variable depending upon the specifics of your emergency department visit. If you don't have a primary care physician on staff, we will provide you with a referral. We always advise you to contact your personal physician following an emergency department visit to inform them of the circumstance of the visit and for follow-up with them and/or the need for any referrals to a consulting specialist. The emergency department will also refer you to a specialist when appropriate. This referral assures that you have the opportunity for followup care with a specialist. All of these measure are taken in an effort to provide you with optimal care, which includes your followup. Under all circumstances we always encourage you to contact your private physician who remains a resource for coordinating your care. When calling for followup care, please make the office aware that this follow-up is from your recent emergency room visit. If for any reason you are refused follow-up, please contact the [facility] emergency department at and ask to speak to the emergency department charge nurse. [facility] Primary care- Internal Medicine and Family [address] [address] Please keep all your scheduled appointments for behavioral health and medical care as you have scheduled. Please take your seizure medications as prescribed and return to ER as needed and as discussed. - My Orders Last 24 Hours: My Active Orders 06/04/17 22:27 Cardiac Monitoring [RC] . DIRECTED EKG Documentation Completion [RC] STAT Oxygen Therapy, ED [RC] ASDIRECTED Pulse Oximetry [RC] ASDIRECTED Sodium Chloride 0.9% [Saline Flush] 10 ml FLUSH ASDIRECTED PRN Sodium Chloride 0.9% [Saline Flush] 2.5 ml FLUSH ASDIRECTED PRN Saline Lock Insert [OM.PC] Stat 06/04/17 22:29 Elbow 2V Lt [CR] Stat Hand 2V Lt [CR] Stat 06/05/17 22:35 levETIRAcetam [Keppra] 500 mg PO ONETIME ONE - Assessment/Plan Last 24 Hours: My Active Orders 06/04/17 22:27 Cardiac Monitoring [RC] . DIRECTED EKG Documentation Completion [RC] STAT Oxygen Therapy, ED [RC] ASDIRECTED Pulse Oximetry [RC] ASDIRECTED Sodium Chloride 0.9% [Saline Flush] 10 ml FLUSH ASDIRECTED PRN Sodium Chloride 0.9% [Saline Flush] 2.5 ml FLUSH ASDIRECTED PRN Saline Lock Insert [OM.PC] Stat 06/04/17 22:29 Elbow 2V Lt [CR] Stat Hand 2V Lt [CR] Stat 06/05/17 22:35 levETIRAcetam [Keppra] 500 mg PO ONETIME ONE
[2017-06-05 02:15] VITALS: BP 120/62
--- NOTE | 2017-06-05 18:12 | CR ---
EXAM DATE: 06/04/17 PATIENT'S AGE: 21 Patient: DAVID LIRIANO Facility: [place], [place] Site . Site : 1995 Study: XRay Extremity Left [id number]/[id number] 11:22:05 PM Ordering Physician: Aubrie Dimas Final Report: INDICATION: hand injury TECHNIQUE: Left hand 2 views. COMPARISON: None. FINDINGS: Bones: Alignment is normal. No fractures or bone lesions. Joint spaces: Unremarkable. Soft tissues: Unremarkable. IMPRESSION: Unremarkable left hand. Dictated by: Tobin Leiva MD @ 06/04/2017 23:51:11 (Electronic Signature) Report Signed by Proxy. [facility]
--- NOTE | 2017-06-05 18:14 | CR ---
EXAM DATE: 06/04/17 PATIENT'S AGE: 21 Patient: DAVID LIRIANO Facility: [place], [place] Site . Site : 1995 Study: XRay Extremity Left [id number]/[id number] 11:23:21 PM Ordering Physician: Aubrie Dimas Final Report: INDICATION: elbow injury TECHNIQUE: Left elbow 2 views. COMPARISON: None. FINDINGS: Bones: Alignment is normal. No fractures or bone lesions. Joint spaces: Unremarkable. Soft tissues: Unremarkable. IMPRESSION: Unremarkable left elbow. Dictated by: Tobin Leiva MD @ 06/04/2017 23:48:11 (Electronic Signature) Report Signed by Proxy. ENRIQUE
[2017-06-05] MEDS ORDERED: levETIRAcetam 500 MG Tab PO ONE (22:35)
== END 2017-06-05 00:56 | disposition home or self-care (01) ==
LOC: MW.ED 22:16
DX: S60.212A Contusion of left wrist, initial encounter (principal); F32.9 Major depressive disorder, single episode, unspecified; F43.9 Reaction to severe stress, unspecified; J45.909 Unspecified asthma, uncomplicated; Z88.5 Allergy status to narcotic agent; Z88.0 Allergy status to penicillin; Z91.010 Allergy to peanuts; Z79.899 Other long term (current) drug therapy; X58.XXXA Exposure to other specified factors, initial encounter
CPT/HCPCS: 29125; 36415; 73070; 73120; 80053; 80305; 81001; 81025; 85025; 93005; 99285; A9270; G0480; J7040; 99284

== ENCOUNTER 2017-06-12 12:44 | Emergency (ER) | payer MEDICAID ==
[2017-06-12] MEDS ORDERED: Sodium Chloride 0.9% 10 ML Syringe FLUSH PRN (12:55)
[2017-06-12] MEDS ORDERED: Sodium Chloride 0.9% 1,000 ML IV ONE (12:55)
[2017-06-12] MEDS ORDERED: Sodium Chloride 0.9% 2.5 ML Syringe FLUSH PRN (12:55)
--- NOTE | 2017-06-12 12:58 | EDM.PDOC ---
ED HPI GENERAL MEDICAL PROBLEM - General Chief Complaint: Neurological Problem Stated Complaint: UNK Time Seen by Provider: 06/12/17 12:52 - History of Present Illness INITIAL COMMENTS - FREE TEXT/NARRATIVE: HISTORY AND PHYSICAL: History of present illness: The patient is a 21-year-old female with known history of seizure disorder for which she takes Keppra, depressive disorder and [facility] which had been ongoing for a prolonged time---"8 minutes". According to EMS she had a total of 3 seizures and when the 3rd seizure restarted and they witnessed they gave Versed 2.5 mg IM at 12:30 PM. The patient did not have any loss of bowel or bladder. The patient is well known to me for being in the ED more for her depressive disorder but she was just recently at [facility] for a psychiatric transfer/evaluation and she says that she had her Keppra increased during that visit from 500-1000 mg twice a day. It is known by me through the police that she has had seizures since that admission in [place] and has presented intermittently to EMS and with police complaining of seizures as she lives alone but has declined transport. The patient had a seizure today and says that she did not take her morning medication but did take her meds last evening. She says she has had no systemic complaints of fever chills chest pain or shortness of breath and no abdominal pain or vomiting and denies . As a result of the seizure today and falling complains of posterior neck pain thoracic pain and bilateral back pain. She did not complain of a headache abdominal pain shortness of breath or anterior chest pain. She has no extremity complaints except for left wrist which she had a contusion that I evaluated with an x-ray on her last visit with me. She is not currently wearing the Velcro splint that I prescribed. The patient does not complain of any tongue injuries and says that she currently spelled water on herself when the seizure started she had no loss of bowel or bladder. The patient's ER visit with transfer to [facility] for psych care was on May 31 and the visit where I saw her for reevaluation of depression as well as the wrist contusion was June 04 she's not been seen here since that time. Please note that nursing remove the patient's leggings and thought that some of the wetness there was not water but had an odor of urine. Review of systems: As per history of present illness and below otherwise all systems reviewed and negative. Past medical history: As per history of present illness and as reviewed below otherwise noncontributory. Surgical history: As per history of present illness and as reviewed below otherwise noncontributory. Social history: No reported history of drug or alcohol abuse. Family history: As per history of present illness and as reviewed below otherwise noncontributory. Physical exam: General: Well-developed well-nourished female who presents on a backboard and C- spine immobilization but no collar. The backboard was removed during the course of my evaluation and a c-collar was immediately placed. She speaks softly and answers questions appropriately. HEENT: Atraumatic, normocephalic, pupils reactive, there is no evidence of any facial swelling deformities or tenderness, EOMs are intact, negative for conjunctival pallor or scleral icterus, mucous membranes moist, throat clear, neck supple, nontender, trachea midline. There is C-spine tenderness in the midline and bilateral sides throughout the course of the cervical spine and a collar was placed. The tongue has no lacerations or abrasions seen Lungs: Clear to auscultation, breath sounds equal bilaterally, chest nontender. Heart: S1S2, regular, negative for clicks, rubs, or JVD. Abdomen: Soft, nondistended, nontender. Negative for masses or hepatosplenomegaly. Negative for costovertebral tenderness. Pelvis: Stable nontender. No lateral hip tenderness Genitourinary: Deferred. Rectal: Deferred. Extremities: Atraumatic with full range of motion of all extremities but there is some mild tenderness of the dorsal aspect of the left wrist which is old and unchanged per the patient since I last evaluation of the wrist on June 04 with x -ray,, negative for cords or calf pain. Neurovascular unremarkable. Neuro: Awake, alert, oriented. Cranial nerves II through XII grossly unremarkable. Motor and sensory unremarkable throughout. Exam nonfocal. Back there are no midline step-offs or defects of the thoracic or lumbar spine but there is some thoracic tenderness along the midline as well as bilateral sides without any defects deformities or soft tissue injuries abrasions or ecchymosis seen. Skin: Normal turgor no evidence of any rashes or lesions and no diaphoresis Diagnostics: EKG CBC CMP EtOH level prolactin level UA UCG UDS Keppra level CT scan of the head spine and thoracic spine, chest x-ray Please note that Keppra level is a send out lab for us so I will not get that result today Therapeutics: IV IV fluid O2 monitor seizure precautions Keppra Patient has been stable in the ER with not any evidence of seizure activity. After the CT scan results are obtained I removed the c-collar. Patient was made aware of all testing results and she is currently giving us a urine sample for the urine testing. I will give her a gram of Keppra IV and I have organized transferred to [facility] in [place] for further evaluation by neurology for either new medication or titration of her medications for the seizures. She tells me that she has a seizure at least every day and that she has a long- standing history of seizures. She tells me she is compliant with her medications but it is unclear when I push her on that. Ambulance has been contacted and the case was discussed with the ER physician at [facility], Dr. Luo, at [id number] and he accepts the patient or transfer I will follow-up on the urine test prior to the patient's departure but should be noted that on prior recent visits her UDS was negative as was her UCG. Impression: Poorly controlled/intractable seizures Definitive disposition and diagnosis as appropriate pending reevaluation and review of above. Middle Back Pain Score (Numeric/FACES): 8 - Related Data Allergies Allergy/AdvReac Type Severity Reaction Status Date / Time cinnamon Allergy unsure Verified 06/12/17 13:02 codeine Allergy Anaphylactic Verified 06/12/17 13:02 Shock peanut Allergy Anaphylactic Verified 06/12/17 13:02 Shock Penicillins Allergy Cannot Verified 06/12/17 13:02 Remember Home Meds: Home Meds Albuterol [IJD: Ventolin HFA] 1 - 2 puff INH Q4H PRN 03/29/17 [History] levETIRAcetam [Levetiracetam] 500 mg PO BID 03/29/17 [History] LORazepam [Ativan] 1 mg PO BID 06/12/17 [History] Past Medical History HEENT History: Reports: None Cardiovascular History: Reports: None Respiratory History: Reports: Asthma Gastrointestinal History: Reports: None Genitourinary History: Reports: None 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: , 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 , 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) Other OB/BYN History: 02/04/17, on bc now- last depo shot 2 wks ago Musculoskeletal History: Reports: None Neurological History: Reports: Seizure, 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) Other Neuro History: Epilepsy Psychiatric History: Reports: Anxiety, Bipolar, Depression, PTSD Endocrine/Metabolic History: Reports: None Hematologic History: Reports: None Immunologic History: Reports: None Oncologic (Cancer) History: Reports: None Dermatologic History: Reports: None - Infectious Disease History Infectious Disease History: Reports: None - Past Surgical History Head Surgeries/Procedures: Reports: None HEENT Surgical History: Reports: None Musculoskeletal Surgical History: Reports: None Social & Family History - Family History Family Medical History: Noncontributory Other Dermatologic Family History: pt adopted, unknown fam hx - Tobacco Use Smoking Status *Q: Never Smoker Second Hand Smoke Exposure: Yes - Caffeine Use Caffeine Use: Reports: None - Recreational Drug Use Recreational Drug Use: No ED ROS GENERAL - Review of Systems Review Of Systems: ROS reveals no pertinent complaints other than HPI. ED EXAM, GENERAL - Physical Exam Exam: See Below (See dictation) Course - Vital Signs Last Recorded V/S: Last Vital Signs Temp 36.6 C 06/12/17 13:01 Pulse 86 06/12/17 13:01 Resp 18 06/12/17 13:01 BP 111/68 06/12/17 13:01 Pulse Ox 98 06/12/17 13:52 - Orders/Labs/Meds Orders: Active Orders 24 hr Category Date Time Status Cardiac Monitoring [RC] . DIRECTED Care 06/12/17 12:53 Active Communication Order [RC] STAT Care 06/12/17 12:53 Active EKG Documentation Completion [RC] STAT Care 06/12/17 12:53 Active Oxygen Therapy, ED [RC] ASDIRECTED Care 06/12/17 12:53 Active Pulse Oximetry [RC] ASDIRECTED Care 06/12/17 12:53 Active DRUG SCREEN, URINE [URCHEM] Stat Lab 06/12/17 12:54 Uncollected HCG QUALITATIVE,URINE [URCHEM] Stat Lab 06/12/17 12:54 Uncollected KEPPRA [REF] Stat Lab 06/12/17 13:07 Received UA W/MICROSCOPIC [URIN] Stat Lab 06/12/17 12:54 Uncollected Sodium Chloride 0.9% [Saline Flush] Med 06/12/17 12:55 Active 10 ml FLUSH ASDIRECTED PRN Sodium Chloride 0.9% [Saline Flush] Med 06/12/17 12:55 Active 2.5 ml FLUSH ASDIRECTED PRN levETIRAcetam [Keppra] 1,000 mg Med 06/12/17 14:42 Active Dextrose 5% in Water 100 ml IV ONETIME Saline Lock Insert [OM.PC] Stat Oth 06/12/17 12:53 Ordered Medication Orders Levetiracetam 1,000 mg/ (Dextrose/Water) 110 mls @ 440 mls/hr IV ONETIME ONE Stop: 06/12/17 14:56 Sodium Chloride (Saline Flush) 10 ml FLUSH ASDIRECTED PRN PRN Reason: Keep Vein Open Sodium Chloride (Saline Flush) 2.5 ml FLUSH ASDIRECTED PRN PRN Reason: Keep Vein Open Labs: Laboratory Tests 06/12/17 06/12/17 Range/Units 13:07 13:07 WBC 6.78 (4.0-11.0) K/uL RBC 4.41 (4.30-5.90) M/uL Hgb 10.0 L (12.0-16.0) g/dL Hct 32.5 L (36.0-46.0) % MCV 73.7 L (80.0-98.0) fL MCH 22.7 L (27.0-32.0) pg MCHC 30.8 L (31.0-37.0) g/dL RDW Std Deviation 46.1 (28.0-62.0) fl RDW Coeff of Volodymyr 17 H (11.0-15.0) % Plt Count 245 (150-400) K/uL MPV 10.50 (7.40-12.00) fL Neut % (Auto) 73.6 (48.0-80.0) % Lymph % (Auto) 19.9 (16.0-40.0) % [place] % (Auto) 6.0 (0.0-15.0) % Eos % (Auto) 0.4 (0.0-7.0) % Baso % (Auto) 0.1 (0.0-1.5) % Neut # (Auto) 5.0 (1.4-5.7) K/uL Lymph # (Auto) 1.4 (0.6-2.4) K/uL [place] # (Auto) 0.4 (0.0-0.8) K/uL Eos # (Auto) 0.0 (0.0-0.7) K/uL Baso # (Auto) 0.0 (0.0-0.1) K/uL Nucleated RBC % 0.0 /100WBC Nucleated RBCs # 0 K/uL Sodium 140 (136-146) mmol/L Potassium 3.7 (3.5-5.1) mmol/L Chloride 111 H (98-110) mmol/L Carbon Dioxide 20 L (21-31) mmol/L BUN 7 (6.0-23.0) mg/dL Creatinine 0.7 (0.6-1.5) mg/dL Est Cr Clr Drug Dosing 91.32 mL/min Estimated GFR (MDRD) > 60.0 ml/min Glucose 90 (60-110) mg/dL Calcium 9.1 (8.8-10.8) mg/dL Total Bilirubin 0.4 (0.1-1.5) mg/dL AST 13 (5-40) IU/L ALT 11 (8-54) IU/L Alkaline Phosphatase 65 (40-150) Total Protein 6.7 (6.0-8.0) g/dL Albumin 4.1 (3.5-5.0) g/dL Globulin 2.6 (2.0-3.5) g/dL Albumin/Globulin Ratio 1.6 (1.3-2.8) Prolactin 13 (0-27) ng/mL Ethyl Alcohol < 10.0 mg/dL Meds: Medications Generic Name Dose Route Start Last Admin Trade Name Freq PRN Reason Stop Dose Admin Levetiracetam 1,000 mg/ 110 mls @ 440 mls/hr 06/12/17 14:42 Dextrose/Water IV 06/12/17 14:56 ONETIME ONE Sodium Chloride 10 ml 06/12/17 12:55 Saline Flush FLUSH ASDIRECTED PRN Keep Vein Open Sodium Chloride 2.5 ml 06/12/17 12:55 Saline Flush FLUSH ASDIRECTED PRN Keep Vein Open Discontinued Medications Generic Name Dose Route Start Last Admin Trade Name Nuris PRN Reason Stop Dose Admin Sodium Chloride 1,000 mls @ 999 mls/hr 06/12/17 12:55 06/12/17 13:38 Normal Saline IV 06/12/17 13:55 999 mls/hr STAT ONE Administration Departure - Departure Time of Disposition: 14:51 Disposition: DC/Tfer to Acute Hospital 02 Condition: Good Clinical Impression: Intractable seizures - Discharge Information Forms: ED Department Discharge - My Orders Last 24 Hours: My Active Orders 06/12/17 12:53 Cardiac Monitoring [RC] . DIRECTED Communication Order [RC] STAT EKG Documentation Completion [RC] STAT Oxygen Therapy, ED [RC] ASDIRECTED Pulse Oximetry [RC] ASDIRECTED Saline Lock Insert [OM.PC] Stat 06/12/17 12:54 DRUG SCREEN, URINE [URCHEM] Stat HCG QUALITATIVE,URINE [URCHEM] Stat UA W/MICROSCOPIC [URIN] Stat 06/12/17 12:55 Sodium Chloride 0.9% [Saline Flush] 10 ml FLUSH ASDIRECTED PRN Sodium Chloride 0.9% [Saline Flush] 2.5 ml FLUSH ASDIRECTED PRN 06/12/17 13:07 KEPPRA [REF] Stat 06/12/17 14:42 levETIRAcetam [Keppra] 1,000 mg Dextrose 5% in Water 100 ml IV ONETIME - Assessment/Plan Last 24 Hours: My Active Orders 06/12/17 12:53 Cardiac Monitoring [RC] . DIRECTED Communication Order [RC] STAT EKG Documentation Completion [RC] STAT Oxygen Therapy, ED [RC] ASDIRECTED Pulse Oximetry [RC] ASDIRECTED Saline Lock Insert [OM.PC] Stat 06/12/17 12:54 DRUG SCREEN, URINE [URCHEM] Stat HCG QUALITATIVE,URINE [URCHEM] Stat UA W/MICROSCOPIC [URIN] Stat 06/12/17 12:55 Sodium Chloride 0.9% [Saline Flush] 10 ml FLUSH ASDIRECTED PRN Sodium Chloride 0.9% [Saline Flush] 2.5 ml FLUSH ASDIRECTED PRN 06/12/17 13:07 KEPPRA [REF] Stat 06/12/17 14:42 levETIRAcetam [Keppra] 1,000 mg Dextrose 5% in Water 100 ml IV ONETIME
[2017-06-12 13:41] LABS: CHLORIDE,CL 111 mmol/L (98-110); SODIUM,NA 140 mmol/L (136-146)
--- NOTE | 2017-06-12 13:46 | CR ---
EXAMINATION: Portable chest radiograph. HISTORY: Shortness of breath. FINDINGS: The trachea is midline. The cardiomediastinal silhouette is within normal limits. No pulmonary infil trates, effusions or pneumothorax. Osseous structures appear unremarkable. IMPRESSION: No acute cardiopulmonary process.
--- NOTE | 2017-06-12 14:24 | CT ---
EXAMINATION: Non contrast CT head. Coronal and sagittal reformats. HISTORY: Pain FINDINGS: No evidence of intra or extra axial hemorrhage, mass, midline shift, hydrocephalus or edema. No hypoattenuation changes in the major vascular territories to suggest acute infarct. No abnormal intracranial calcifications are detected. No evidence of substantial vascular calcifica tions. The orbits and globes are symmetric. Paranasal sinuses and mastoid air cells are well aerated without substantial findings. Pituitary fossa appears unremarkable. Calvarium is intact. No evidence of skull fracture. IMPRESSION: No acute intracranial findings.
--- NOTE | 2017-06-12 14:28 | CT ---
EXAMINATION: CT cervical and thoracic spine HISTORY: Pain COMPARISON: 03/15/2016 TECHNIQUE: Axial CT images obtained through the cervical and thoracic spine without contrast. Lamb l and sagittal reconstructions obtained. FINDINGS: Cervical spine: The cervical spinal alignment appears grossly normal. The vertebral body heights and disc spaces appear well-maintained. There is no fracture or dislocation. Bone mineralization is nor mal. Facet alignment is preserved. The paravertebral soft tissues are unremarkable. The lung apices are clear. Thoracic spine: Thoracic spinal alignment is normal. Vertebral body heights and disc spaces appear w ell-maintained. There is no fracture or dislocation. Patchy groundglass noted within the right lung base and subpleural right upper lobe laterally. The visualized images of the upper abdomen appear no rmal. IMPRESSION: 1. No acute cervical thoracic spinal abnormality. 2. Mild groundglass within the right lung base. Likely representing an atypical infectious process.
[2017-06-12 15:08] VITALS: BP 116/69
== END 2017-06-12 16:21 ==
LOC: MW.ED 12:44
DX: G40.919 Epilepsy, unspecified, intractable, without status epilepticus (principal); J45.909 Unspecified asthma, uncomplicated; Z91.010 Allergy to peanuts; Z88.5 Allergy status to narcotic agent; Z88.0 Allergy status to penicillin
CPT/HCPCS: 36415; 70450; 71010; 72125; 72128; 80053; 80177; 80305; 81001; 81025; 84146; 85025; 93005; 96361; 96365; 99285; G0480; J1953; J7040; J7060; 99284

== ENCOUNTER 2017-09-10 16:15 | Emergency (ER) | payer MEDICAID ==
[2017-09-10] MEDS ORDERED: methylPREDNISolone Sodium Succinate 125 MG/2 ML SDV IM ONE (16:39)
[2017-09-10] MEDS ORDERED: Albuterol 0.083% 2.5 MG/3 ML Neb Soln NEB ONE (16:39)
--- NOTE | 2017-09-10 16:49 | EDM.PDOC ---
ED HPI GENERAL MEDICAL PROBLEM - General Chief Complaint: Skin Complaint Stated Complaint: RASH Time Seen by Provider: 09/10/17 16:30 Source of Information: Reports: Patient History Limitations: Reports: No Limitations - History of Present Illness INITIAL COMMENTS - FREE TEXT/NARRATIVE: HISTORY AND PHYSICAL: History of present illness: [Patient comes to the emergency room today complaining of red rash to both of her inner arms. She first noticed around 3:30 this morning that she had some itching to her forearms. When she woke up mid morning she developed some red raised itching lesions. These have continued to be achieved throughout the day. She is also experiencing some itching to other areas of her body such as behind her right knee and below her left eye. No lesions or rash has been noted to these areas. She reports a long history of food and medication allergies as well as a history of asthma. She has felt increased tightness in her chest and a tickle in her throat and had some wheezing but denies any respiratory distress. Took 2 puffs of her Ventolin inhaler earlier this afternoon without significant improvement in her symptoms. She denies any new soap, body wash, laundry detergent. No new known exposures. No fever or chills. No chest pain shortness of breath or difficulty breathing. No abdominal pain nausea or vomiting. Has no other concerns or complaints today. She has recently been well, with no recent illnesses or infections.] Review of systems: As per history of present illness and below otherwise all systems reviewed and negative. Past medical history: As per history of present illness and as reviewed below otherwise noncontributory. Surgical history: As per history of present illness and as reviewed below otherwise noncontributory. Social history: No reported history of drug or alcohol abuse. Family history: As per history of present illness and as reviewed below otherwise noncontributory. Physical exam: Gen.: Well-developed well-nourished female in no acute distress. Vital signs are stable and reviewed by this provider. HEENT: Atraumatic, normocephalic. Oral mucous members are pink and moist. Throat is clear. Lungs: Clear to auscultation, breath sounds equal bilaterally. No wheezing, crackles or rales. Heart: S1S2, regular rate and rhythm. Abdomen: Soft, nondistended, nontender. Skin: Erythematous hive-like rash to bilateral inner forearms, right is worse than left. Extremities: Atraumatic. Neurovascular unremarkable. Neuro: Awake, alert, oriented. Motor and sensory unremarkable throughout. Exam nonfocal. Therapeutics: [Solu-Medrol 125 mg IM, albuterol nebulizer treatment] Impression: [Allergic reaction] Plan: [Solu-Medrol 125 mg given IM in the ER. Albuterol nebulizer 2.5 mg given. Patient discharged to home with instructions for daily antihistamine and Benadryl every 4-6 hours prn itching. Strict return precautions are reviewed with the patient. She is advised to establish care with a local PCP to discuss allergies. She is in agreement with today's plan. All questions are answered and concerns are addressed.] Definitive disposition and diagnosis as appropriate pending reevaluation and review of above. - Related Data Allergies Allergy/AdvReac Type Severity Reaction Status Date / Time acetaminophen Allergy Vomiting Verified 09/10/17 16:24 cinnamon Allergy unsure Verified 06/12/17 13:02 codeine Allergy Anaphylactic Verified 06/12/17 13:02 Shock ibuprofen Allergy Vomiting Verified 09/10/17 16:24 peanut Allergy Anaphylactic Verified 06/12/17 13:02 Shock Penicillins Allergy Cannot Verified 06/12/17 13:02 Remember Home Meds: Home Meds Albuterol [IJD: Ventolin HFA] 1 - 2 puff INH Q4H PRN 03/29/17 [History] levETIRAcetam [Levetiracetam] 500 mg PO BID 03/29/17 [History] LORazepam [Ativan] 1 mg PO BID 06/12/17 [History] Past Medical History HEENT History: Reports: None Cardiovascular History: Reports: None Respiratory History: Reports: Asthma Gastrointestinal History: Reports: None Genitourinary History: Reports: None 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: , 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 , 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) Other OB/BYN History: 02/04/17, on bc now- last depo shot 2 wks ago Musculoskeletal History: Reports: None Neurological History: Reports: Seizure, 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) Other Neuro History: Epilepsy Psychiatric History: Reports: Anxiety, Bipolar, Depression, PTSD Endocrine/Metabolic History: Reports: None Hematologic History: Reports: None Immunologic History: Reports: None Oncologic (Cancer) History: Reports: None Dermatologic History: Reports: None - Infectious Disease History Infectious Disease History: Reports: None - Past Surgical History Head Surgeries/Procedures: Reports: None HEENT Surgical History: Reports: None Musculoskeletal Surgical History: Reports: None Social & Family History - Family History Family Medical History: Noncontributory Other Dermatologic Family History: pt adopted, unknown fam hx - Tobacco Use Smoking Status *Q: Never Smoker Second Hand Smoke Exposure: No - Caffeine Use Caffeine Use: Reports: Coffee, Energy Drinks - Recreational Drug Use Recreational Drug Use: No ED ROS GENERAL - Review of Systems Review Of Systems: ROS reveals no pertinent complaints other than HPI. ED EXAM, SKIN/RASH Exam: See Below Course - Vital Signs Last Recorded V/S: Last Vital Signs Temp 97.7 F 09/10/17 16:25 Pulse 106 H 09/10/17 16:25 Resp 14 09/10/17 16:25 BP 128/83 09/10/17 16:25 Pulse Ox 96 09/10/17 16:25 - Orders/Labs/Meds Orders: Active Orders 24 hr Category Date Time Status RT Aerosol Therapy [RC] ASDIRECTED Care 09/10/17 16:39 Active Meds: Medications Discontinued Medications Generic Name Dose Route Start Last Admin Trade Name Freq PRN Reason Stop Dose Admin Albuterol 2.5 mg 09/10/17 16:39 09/10/17 16:59 Proventil Neb Soln NEB 09/10/17 16:40 2.5 mg ONETIME ONE Administration Methylprednisolone Sodium Succinate 125 mg 09/10/17 16:39 09/10/17 17:13 Solu-Medrol IM 09/10/17 16:40 125 mg ONETIME ONE Administration Departure - Departure Time of Disposition: 17:48 Disposition: Home, Self-Care 01 Condition: Good Clinical Impression: Allergic reaction Qualifiers: Encounter type: initial encounter Qualified Code(s): T78.40XA - Allergy, unspecified, initial encounter - Discharge Information Referrals: PCP,None [Primary Care Provider] - Forms: ED Department Discharge Additional Instructions: The following information is given to patients seen in the emergency department who are being discharged to home. This information is to outline your options for follow-up care. We provide all patients seen in our emergency department with a follow-up referral. The need for follow-up, as well as the timing and circumstances, are variable depending upon the specifics of your emergency department visit. If you don't have a primary care physician on staff, we will provide you with a referral. We always advise you to contact your personal physician following an emergency department visit to inform them of the circumstance of the visit and for follow-up with them and/or the need for any referrals to a consulting specialist. The emergency department will also refer you to a specialist when appropriate. This referral assures that you have the opportunity for follow-up care with a specialist. All of these measure are taken in an effort to provide you with optimal care, which includes your follow-up. Under all circumstances we always encourage you to contact your private physician who remains a resource for coordinating your care. When calling for follow-up care, please make the office aware that this follow-up is from your recent emergency room visit. If for any reason you are refused follow-up, please contact the [facility] emergency department at and asked to speak to the emergency department charge nurse. [facility] [address] [place] [address] Establish care at the clinic listed above and follow-up there at soonest available convenience. Claritin or Zyrtec daily. Benadryl every 4-6 hours as needed for itching. Return to ER as needed as discussed. - My Orders Last 24 Hours: My Active Orders 09/10/17 16:39 RT Aerosol Therapy [RC] ASDIRECTED - Assessment/Plan Last 24 Hours: My Active Orders 09/10/17 16:39 RT Aerosol Therapy [RC] ASDIRECTED
[2017-09-10 18:05] VITALS: BP 128/75
== END 2017-09-10 18:01 | disposition home or self-care (01) ==
LOC: MW.ED 16:15
DX: T78.40XA Allergy, unspecified, initial encounter (principal); Z88.6 Allergy status to analgesic agent; Z88.5 Allergy status to narcotic agent; Z88.0 Allergy status to penicillin; Z91.010 Allergy to peanuts
CPT/HCPCS: 94640; 96372; 99283; J2930; 99282

== ENCOUNTER 2018-06-24 20:48 | Emergency (ER) | payer MEDICAID ==
--- NOTE | 2018-06-24 21:03 | EDM.PDOC ---
ED HPI GENERAL MEDICAL PROBLEM - General Chief Complaint: Allergic Reaction Stated Complaint: MAY BE HAVING ALGERIC REATION Time Seen by Provider: 06/24/18 21:03 Source of Information: Reports: Patient History Limitations: Reports: No Limitations - History of Present Illness INITIAL COMMENTS - FREE TEXT/NARRATIVE: HISTORY AND PHYSICAL: History of present illness: Patient is a 22-year-old female who presents to the emergency room with concerns that she may be having an allergic reaction. She states approximately 30-45 minutes ago she was eating sushi and started to develop a sensation of tightness in her mouth around her throat and had 2 episodes of vomiting. She denies any fever, chills, chest pain, shortness of breath, cough. Denies any abdominal pain, diarrhea, constipation or dysuria. Not take any medications prior to arrival. Review of systems: As per history of present illness and below otherwise all systems reviewed and negative. Past medical history: As per history of present illness and as reviewed below otherwise noncontributory. Surgical history: As per history of present illness and as reviewed below otherwise noncontributory. Social history: No reported history of drug or alcohol abuse. Family history: As per history of present illness and as reviewed below otherwise noncontributory. Physical exam: General: Well-developed and well-nourished 22-year-old female. Alert and oriented. Nontoxic appearing and in no acute distress. HEENT: Atraumatic, normocephalic, pupils equal and reactive bilaterally, negative for conjunctival pallor or scleral icterus, mucous membranes moist, throat clear, neck supple, nontender, trachea midline. No drooling or trismus noted. No meningeal signs Lungs: Clear to auscultation, breath sounds equal bilaterally, chest nontender. Heart: S1S2, regular rate and rhythm without overt murmur Abdomen: Soft, nondistended, nontender. Negative for masses or hepatosplenomegaly. Negative for costovertebral tenderness. Pelvis: Stable nontender. Genitourinary: Deferred. Rectal: Deferred. Skin: Intact, warm, dry. No lesions or rashes noted. Extremities: Atraumatic, negative for cords or calf pain. Neurovascular unremarkable. Neuro: Awake, alert, oriented. Cranial nerves II through XII unremarkable. Cerebellum unremarkable. Motor and sensory unremarkable throughout. Exam nonfocal. Notes: Physical examination is normal. Vital signs are stable and have been reviewed by me. I will give her Solu-Medrol and Benadryl IM along with a Zofran ODT to help with her nausea. Diagnostics: None Therapeutics: Solu-Medrol and Benadryl IM, Zofran ODT Prescription: Medrol Dose Pack Impression: Allergic Reaction Plan: 1. Continue with Benadryl around the clock for the next 2-3 days. 2. Take the Medrol Dosepak as directed. 3. Follow-up with your primary care provider in the next 1-2 days. Return to the ED as needed and as discussed. Definitive disposition and diagnosis as appropriate pending reevaluation and review of above. Onset: Today Duration: Minutes: - Related Data Allergies Allergy/AdvReac Type Severity Reaction Status Date / Time acetaminophen Allergy Vomiting Verified 06/24/18 21:05 cinnamon Allergy unsure Verified 06/24/18 21:05 codeine Allergy Anaphylactic Verified 06/24/18 21:05 Shock ibuprofen Allergy Vomiting Verified 06/24/18 21:05 peanut Allergy Anaphylactic Verified 06/24/18 21:05 Shock Penicillins Allergy Cannot Verified 06/24/18 21:05 Remember Home Meds: Home Meds Albuterol [IJD: Ventolin HFA] 1 - 2 puff INH Q4H PRN 03/29/17 [History] levETIRAcetam [Levetiracetam] 500 mg PO BID 03/29/17 [History] LORazepam [Ativan] 1 mg PO BID 06/12/17 [History] methylPREDNISolone [Medrol] 4 mg PO DAILY #1 dospk 06/24/18 [Rx] Past Medical History HEENT History: Reports: None Cardiovascular History: Reports: None Respiratory History: Reports: Asthma Gastrointestinal History: Reports: None Genitourinary History: Reports: None 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: , 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 , 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) 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: 02/04/17, on bc now- last depo shot 2 wks ago Musculoskeletal History: Reports: None Neurological History: Reports: Seizure, 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) Other Neuro History: Epilepsy Psychiatric History: Reports: Anxiety, Bipolar, Depression, PTSD Endocrine/Metabolic History: Reports: None Hematologic History: Reports: None Immunologic History: Reports: None Oncologic (Cancer) History: Reports: None Dermatologic History: Reports: None - Infectious Disease History Infectious Disease History: Reports: None - Past Surgical History Head Surgeries/Procedures: Reports: None HEENT Surgical History: Reports: None Musculoskeletal Surgical History: Reports: None Social & Family History - Family History Family Medical History: Noncontributory Other Dermatologic Family History: pt adopted, unknown fam hx - Tobacco Use Smoking Status *Q: Never Smoker - Caffeine Use Caffeine Use: Reports: Coffee, Energy Drinks ED ROS ALLERGIC REACTION - Review of Systems Review Of Systems: ROS reveals no pertinent complaints other than HPI. ED EXAM GENERAL NO PERIP PULSE - Physical Exam Exam: See Below (See dictation) Course - Vital Signs Last Recorded V/S: Last Vital Signs Temp 97.7 F 06/24/18 21:03 Pulse 106 H 06/24/18 21:03 Resp 18 06/24/18 21:03 BP 128/87 06/24/18 21:03 Pulse Ox 96 06/24/18 21:03 - Orders/Labs/Meds Meds: Medications Discontinued Medications Generic Name Dose Route Start Last Admin Trade Name Nuris PRN Reason Stop Dose Admin Diphenhydramine HCl 50 mg 06/24/18 21:06 06/24/18 21:32 Benadryl IM 06/24/18 21:07 50 mg ONETIME ONE Administration Methylprednisolone Sodium Succinate 125 mg 06/24/18 21:06 06/24/18 21:33 Solu-Medrol IM 06/24/18 21:07 125 mg ONETIME ONE Administration Ondansetron HCl 4 mg 06/24/18 21:08 06/24/18 21:32 Zofran Odt PO 06/24/18 21:09 4 mg ONETIME ONE Administration Departure - Departure Time of Disposition: 21:46 Disposition: Home, Self-Care 01 Clinical Impression: Allergic reaction Qualifiers: Encounter type: initial encounter Qualified Code(s): T78.40XA - Allergy, unspecified, initial encounter - Discharge Information Prescriptions: methylPREDNISolone [Medrol] 4 mg PO DAILY #1 dospk Instructions: Allergies, Adult, [id number] Referrals: PCP,None [Primary Care Provider] - Additional Instructions: The following information is given to patients seen in the emergency department who are being discharged to home. This information is to outline your options for follow-up care. We provide all patients seen in our emergency department with a follow-up referral. The need for follow-up, as well as the timing and circumstances, are variable depending upon the specifics of your emergency department visit. If you don't have a primary care physician on staff, we will provide you with a referral. We always advise you to contact your personal physician following an emergency department visit to inform them of the circumstance of the visit and for follow-up with them and/or the need for any referrals to a consulting specialist. The emergency department will also refer you to a specialist when appropriate. This referral assures that you have the opportunity for follow-up care with a specialist. All of these measure are taken in an effort to provide you with optimal care, which includes your follow-up. Under all circumstances we always encourage you to contact your private physician who remains a resource for coordinating your care. When calling for follow-up care, please make the office aware that this follow-up is from your recent emergency room visit. If for any reason you are refused follow-up, please contact the [facility] Emergency Department at and asked to speak to the emergency department charge nurse. [facility] [address] [place] [id number] 1. Continue with Benadryl around the clock for the next 2-3 days. 2. Take the Medrol Dosepak as directed. 3. Follow-up with your primary care provider in the next 1-2 days. Return to the ED as needed and as discussed.
[2018-06-24] MEDS ORDERED: diphenhydrAMINE 50 MG/ML SDV IM ONE (21:06)
[2018-06-24] MEDS ORDERED: methylPREDNISolone Sodium Succinate 125 MG/2 ML SDV IM ONE (21:06)
[2018-06-24] MEDS ORDERED: Ondansetron 4 MG Tab.DIS PO ONE (21:08)
[2018-06-24 21:26] VITALS: BP 128/87
== END 2018-06-24 22:19 | disposition home or self-care (01) ==
LOC: MW.ED 20:48
DX: T78.1XXA Other adverse food reactions, not elsewhere classified, initial encounter (principal); K13.29 Other disturbances of oral epithelium, including tongue; R11.10 Vomiting, unspecified; Z88.6 Allergy status to analgesic agent; Z88.5 Allergy status to narcotic agent; Z88.0 Allergy status to penicillin; J45.909 Unspecified asthma, uncomplicated
CPT/HCPCS: 96372; 99283; A9270; J1200; J2930

== ENCOUNTER 2019-09-13 20:16 | Emergency (ER) | payer OTHER ==
--- NOTE | 2019-09-13 20:39 | EDM.PDOC ---
ED HPI GENERAL MEDICAL PROBLEM - General Chief Complaint: Head Injury Stated Complaint: FELL AND HIT HEAD, LOST CONSCIOUSNESS Time Seen by Provider: 09/13/19 20:26 - History of Present Illness INITIAL COMMENTS - FREE TEXT/NARRATIVE: HISTORY AND PHYSICAL: History of present illness: The patient is a 24-year-old female who works at [employer] and presents after she was on a ladder a proximally 5 feet of taking things off of a shelf and a box that she did not see hit into her and pushed her and made her fall to the ground. She says that she struck the left side of her head and she had a brief loss of consciousness but she is not sure how long. She does not feel nauseated and has not had any vomiting and she complains only of pain to the left side of her head but no neck or back pain. Prior to these events she was in her usual state of good health with no systemic issues. She is unsure if she is . She has no abdominal pain no extremity complaints no chest wall or chest pain and no shortness of breath. She says that it only hurts on the left side of her head and near her ear Review of systems: As per history of present illness and below otherwise all systems reviewed and negative. Past medical history: As per history of present illness and as reviewed below otherwise noncontributory. Surgical history: . She has no facial pain and she did not take anything for her discomfort prior to coming here. As per history of present illness and as reviewed below otherwise noncontributory. Social history: No reported history of drug or alcohol abuse. Family history: As per history of present illness and as reviewed below otherwise noncontributory. Physical exam: General: Well-developed well-nourished female who is nontoxic and who ambulated into the ED without distress. Vital signs are noted by me HEENT: Atraumatic, normocephalic, there is some mild tenderness to palpation of the scalp area in the periauricular area and the left parietal region without any soft tissue swelling bony defects or deformities lacerations or abrasions, pupils reactive, negative for conjunctival pallor or scleral icterus, mucous membranes moist, throat clear, neck supple, nontender, trachea midline. EOMs are intact, TMs are normal bilaterally, there is no evidence of any fascial defects or deformities and no tenderness with palpation, bite is intact, teeth are intact, there are no midline step-offs in his defects of the cervical spine Lungs: Clear to auscultation, breath sounds equal bilaterally, chest nontender. Heart: S1S2, regular rate and rhythm no overt murmurs Abdomen: Soft, nondistended, nontender. NABS Pelvis: Stable nontender. Genitourinary: Deferred. Rectal: Deferred. Extremities: Atraumatic, full range of motion without defects or deficits Neurovascular unremarkable. There is an old abrasion at the right knee which is not new from today and I did not see any other lesions or abnormalities. There Is no tenderness in the extremities. Neuro: Awake, alert, oriented. Cranial nerves II through XII unremarkable. Cerebellum unremarkable. Motor and sensory unremarkable throughout. Exam nonfocal. Back: There are no midline step-offs tenderness defects of the thoracic or lumbar spine no posterior rib or posterior pelvis tenderness and no visible evidence of any soft tissue injury such as erythema ecchymosis or abrasions. Diagnostics: UCG CT scan of the head Therapeutics: Patient was offered Tylenol and declines Toradol 2134: I was called to the room by nursing because the patient had gone from the chair to the floor and was having a "seizure activity". Nursing said she was called in the room by the friend at bedside for reevaluation and the patient was noted by nursing to have fluttering of her eyelids but no generalized motor activity. She was not responsive to voice. When they tried to reposition her she did have some generalized motor activity but it was not sustained. She did not have loss of bowel or bladder and there were no complications. On my evaluation the patient had normal tone throughout her extremities and had the eyelid fluttering but no other signs of generalized motor or focal motor activity. The patient had no post ictal period and at 28/11/49 is now awake alert and talking to me. It is noted in her chart that she was on Keppra in the past for seizure disorder and had been on it since she was younger and she stopped taking her medications when she got . She did have a recent EEG performed here on June 142018 but I am unable to access those results. The patient did have a follow-up appointment with but Dr. Loera but she thinks that she may have missed that appointment. She tells me that she has seizures at least twice a week for many months and that this is not new or different with the only thing the new that she is here in the ED. Her friend at bedside has seen this activity before and was not at all concerned. The patient says that she had an ill feeling and new she was going to have a seizure and she normally has the same aura. She is not concerned about tonight's events and does not want a repeat head scan or further evaluation. We will place her name on the next dated follow-up for Dr. Loera as she does need to get in there. She was never contacted about her EEG results with her they were positive or not. Patient is currently awake alert and oriented asking for an ice pack and she says that the headache she is having is the same headache she came into the ED with and that there is nothing new or different. On physical exam he is moving all extremities without defects or deformities and has no tenderness and her back and neck are without midline step-offs tenderness or defects and there is no soft tissue injuries. There are no new injuries soft tissue swelling of her scalp and there is no new areas of tenderness just the same location as her initial presentation. Give her a dose of Toradol for her headache. The patient was cautioned that she does need to follow-up with Dr. Loera and if she needs medications to start those but at this point I will not initiate that therapy as she's been having seizures regularly at home and tonight is nothing new or different. When I specifically asked the patient if she would have come here to the ED for her seizure tonight she says no. She does tell me that they usually occur at nighttime so this is not unusual for her. The patient tells me that she knew she was going to have a seizure and did fall forward onto the floor but again has no new complaints and wants no further evaluation. Impression: FAll with closed head injury and brief loss of consciousness; concussion ; seizure while in the emergency department, history of same Definitive disposition and diagnosis as appropriate pending reevaluation and review of above. head Pain Score (Numeric/FACES): 7 - Related Data Allergies Allergy/AdvReac Type Severity Reaction Status Date / Time acetaminophen Allergy Vomiting Verified 09/13/19 20:28 cinnamon Allergy Anaphylactic Verified 09/13/19 20:28 Shock codeine Allergy Anaphylactic Verified 09/13/19 20:28 Shock ibuprofen Allergy Vomiting Verified 09/13/19 20:28 peanut Allergy Anaphylactic Verified 09/13/19 20:28 Shock Penicillins Allergy Vomiting Verified 09/13/19 20:28 Home Meds: Home Meds Albuterol [IJD: Ventolin HFA] 1 - 2 puff INH Q4H PRN 03/29/17 [History] Past Medical History HEENT History: Reports: None Cardiovascular History: Reports: None Respiratory History: Reports: Asthma Gastrointestinal History: Reports: None Genitourinary History: Reports: None 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: , Therapeutic , 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) 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: 02/04/17, on bc now- last depo shot 2 wks ago Musculoskeletal History: Reports: Fracture Other Musculoskeletal History: L ankle Neurological History: Reports: Seizure, 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) Other Neuro History: Epilepsy Psychiatric History: Reports: Anxiety, Bipolar, Depression, PTSD Endocrine/Metabolic History: Reports: None Hematologic History: Reports: None Immunologic History: Reports: None Oncologic (Cancer) History: Reports: None Dermatologic History: Reports: None - Infectious Disease History Infectious Disease History: Reports: None - Past Surgical History Head Surgeries/Procedures: Reports: None HEENT Surgical History: Reports: None Musculoskeletal Surgical History: Reports: None Social & Family History - Family History Family Medical History: Noncontributory Other Dermatologic Family History: pt adopted, unknown fam hx - Caffeine Use Caffeine Use: Reports: Coffee, Energy Drinks ED ROS GENERAL - Review of Systems Review Of Systems: ROS reveals no pertinent complaints other than HPI. ED EXAM, HEAD INJURY - Physical Exam Exam: See Below (See dictation) Course - Vital Signs Last Recorded V/S: Last Vital Signs Temp 36.0 C 09/13/19 20:21 Pulse 97 09/13/19 20:21 Resp 18 09/13/19 20:21 BP 136/79 09/13/19 20:21 Pulse Ox 96 09/13/19 20:21 - Orders/Labs/Meds Orders: Active Orders 24 hr Category Date Time Status Blood Glucose Check, Bedside [RC] ONETIME Care 09/13/19 21:47 Active Ketorolac [Toradol] Med 09/13/19 21:54 Once 30 mg IVPUSH ONETIME ONE Sodium Chloride 0.9% [Saline Flush] Med 09/13/19 21:47 Active 10 ml FLUSH ASDIRECTED PRN Sodium Chloride 0.9% [Saline Flush] Med 09/13/19 21:47 Active 2.5 ml FLUSH ASDIRECTED PRN Saline Lock Insert [OM.PC] Stat Oth 09/13/19 21:47 Ordered Medication Orders Ketorolac Tromethamine (Toradol) 30 mg IVPUSH ONETIME ONE Stop: 09/13/19 21:55 Sodium Chloride (Saline Flush) 10 ml FLUSH ASDIRECTED PRN PRN Reason: Keep Vein Open Sodium Chloride (Saline Flush) 2.5 ml FLUSH ASDIRECTED PRN PRN Reason: Keep Vein Open Labs: Laboratory Tests 09/13/19 Range/Units 20:55 Urine HCG, Qual NEGATIVE (NEGATIVE) Meds: Medications Generic Name Dose Route Start Last Admin Trade Name Freq PRN Reason Stop Dose Admin Ketorolac Tromethamine 30 mg 09/13/19 21:54 Toradol IVPUSH 09/13/19 21:55 ONETIME ONE Sodium Chloride 10 ml 09/13/19 21:47 Saline Flush FLUSH ASDIRECTED PRN Keep Vein Open Sodium Chloride 2.5 ml 09/13/19 21:47 Saline Flush FLUSH ASDIRECTED PRN Keep Vein Open Departure - Departure Time of Disposition: 22:02 Disposition: Home, Self-Care 01 Condition: Good Clinical Impression: Seizure disorder Closed head injury Qualifiers: Encounter type: initial encounter Qualified Code(s): S09.90XA - Unspecified injury of head, initial encounter - Discharge Information Referrals: Nader Jay MD [Primary Care Provider] - Forms: ED Department Discharge Additional Instructions: The following information is given to patients seen in the emergency department who are being discharged to home. This information is to outline your options for follow-up care. We provide all patients seen in our emergency department with a follow-up referral. The need for follow-up, as well as the timing and circumstances, are variable depending upon the specifics of your emergency department visit. If you don't have a primary care physician on staff, we will provide you with a referral. We always advise you to contact your personal physician following an emergency department visit to inform them of the circumstance of the visit and for follow-up with them and/or the need for any referrals to a consulting specialist. The emergency department will also refer you to a specialist when appropriate. This referral assures that you have the opportunity for followup care with a specialist. All of these measure are taken in an effort to provide you with optimal care, which includes your followup. Under all circumstances we always encourage you to contact your private physician who remains a resource for coordinating your care. When calling for followup care, please make the office aware that this follow-up is from your recent emergency room visit. If for any reason you are refused follow-up, please contact the [facility] emergency department at and ask to speak to the emergency department charge nurse. [facility] Primary care- Internal Medicine and Family [facility] [address] [place] [phone] [facility] Specialty care-Neurology Professional Building [address] [place] [address], [address] [place] [address] Please call the office of Dr. Loera and find out if you have a currently scheduled appointment or if you missed your appointment reschedule it. Please let them know that you're in the emergency department tonight and that your name is on the expedited follow-up less. Push hydration use [id number] medications for pain and return to ER as needed and as discussed. As you sustained a mild concussion today please continue to watch her symptoms and treat appropriately. - My Orders Last 24 Hours: My Active Orders 09/13/19 21:47 Blood Glucose Check, Bedside [RC] ONETIME Sodium Chloride 0.9% [Saline Flush] 10 ml FLUSH ASDIRECTED PRN Sodium Chloride 0.9% [Saline Flush] 2.5 ml FLUSH ASDIRECTED PRN Saline Lock Insert [OM.PC] Stat 09/13/19 21:54 Ketorolac [Toradol] 30 mg IVPUSH ONETIME ONE - Assessment/Plan Last 24 Hours: My Active Orders 09/13/19 21:47 Blood Glucose Check, Bedside [RC] ONETIME Sodium Chloride 0.9% [Saline Flush] 10 ml FLUSH ASDIRECTED PRN Sodium Chloride 0.9% [Saline Flush] 2.5 ml FLUSH ASDIRECTED PRN Saline Lock Insert [OM.PC] Stat 09/13/19 21:54 Ketorolac [Toradol] 30 mg IVPUSH ONETIME ONE
--- NOTE | 2019-09-13 21:42 | CT ---
INDICATION: Hip with box in head. LOC, dizziness, nausea, headache, history of seizures TECHNIQUE: CT head without contrast. COMPARISON: None FINDINGS: CSF spaces: Within normal limits for age. Brain parenchyma: The archer-white differentiation is normal. No sign of mass, hemorrhage, or midline shift. Skull base and calvarium: The visualized paranasal sinuses and mastoid air cells demonstrate no acute or significant findings. The visualized orbits are grossly unremarkable. No skull fractures. IMPRESSION: Unremarkable noncontrast head CT. Please note that all CT scans at this facility use dose modulation, iterative reconstruction, and/or weight-based dosing when appropriate to reduce radiation dose to as low as reasonably achievable. Dictated by Tobin Leiva MD @ Sep 13 2019 9:31PM Signed by Dr. Tobin Leiva @ Sep 13 2019 9:40PM
[2019-09-13] MEDS ORDERED: Sodium Chloride 0.9% 10 ML Syringe FLUSH PRN (21:47)
[2019-09-13] MEDS ORDERED: Sodium Chloride 0.9% 2.5 ML Syringe FLUSH PRN (21:47)
[2019-09-13] MEDS ORDERED: Ketorolac 30 MG/ML SDV IVPUSH ONE (21:54)
[2019-09-13 22:18] VITALS: BP 129/84; PULSE 91
== END 2019-09-13 22:15 | disposition home or self-care (01) ==
LOC: MW.ED 20:16
DX: S06.0X9A Concussion with loss of consciousness of unspecified duration, initial encounter (principal); G40.909 Epilepsy, unspecified, not intractable, without status epilepticus; J45.909 Unspecified asthma, uncomplicated; Z88.6 Allergy status to analgesic agent; Z91.02 Food additives allergy status; Z88.5 Allergy status to narcotic agent; Z91.010 Allergy to peanuts; Z88.0 Allergy status to penicillin; Z79.899 Other long term (current) drug therapy; W11.XXXA Fall on and from ladder, initial encounter; Y93.89 Activity, other specified; Y92.512 Supermarket, store or market as the place of occurrence of the external cause; Y99.0 Civilian activity done for income or pay
CPT/HCPCS: 70450; 81025; 82962; 96374; 99284; J1885; 99285

== ENCOUNTER 2019-10-02 02:41 | Emergency (ER) | payer SELFPAY ==
[2019-10-02 03:19] LABS: BLOOD UREA NITROGEN,BUN 10 mg/dL (7.0-18.0); CARBON DIOXIDE,CO2 21.9 mmol/L (21.0-32.0); CHLORIDE,CL 102 mmol/L (98-107); GLUCOSE RANDOM 110 mg/dL (74-106); POTASSIUM,K 3.4 mmol/L (3.5-5.1); SODIUM,NA 137 mmol/L (136-145)
--- NOTE | 2019-10-02 04:20 | CR ---
INDICATION: Pain post seizure. COMPARISON: 06/12/2017. FINDINGS: An AP erect single view of the chest was obtained at 0332 hours. The lungs remain clear. No focal or diffuse infiltrates are present. The heart now appears to be mildly enlarged, partly as result of radiographic magnification. The mediastinum is normal in appearance. The osseous structures are normal in appearance for the patient`s age. IMPRESSION: New mild cardiomegaly. Otherwise no active disease seen in the chest. Dictated by Roberth Davis MD @ Oct 02 2019 4:18AM Signed by Dr. Roberth Davis @ Oct 02 2019 4:19AM
--- NOTE | 2019-10-02 04:22 | CT ---
INDICATION: Pain after seizure. COMPARISON: 06/12/2017 TECHNIQUE: CT examination of the cervical spine is performed without contrast using spiral technique. 2 mm thick axial, sagittal and coronal reconstructions were made. Please note that all CT scans at this facility use dose modulation, iterative reconstruction, and/or weight-based dosing when appropriate to reduce radiation dose to as low as reasonably achievable. FINDINGS: : There is no sign of fracture or subluxation. The cervical vertebral bodies and intervertebral discs are normal in height and are in anatomic alignment. There is no sign of prevertebral soft tissue swelling. The airway structures are normal in appearance. The visualized skull base is normal in appearance. The visualized posterior fossa is normal in appearance. The apices of the lungs are clear. IMPRESSION: Normal CT of the cervical spine with no sign of acute injury. No interval change. Please note that all CT scans at this facility use dose modulation, iterative reconstruction, and/or weight-based dosing when appropriate to reduce radiation dose to as low as reasonably achievable. Dictated by Roberth Davis MD @ Oct 02 2019 4:19AM Signed by Dr. Roberth Davis @ Oct 02 2019 4:21AM
--- NOTE | 2019-10-02 04:24 | CT ---
INDICATION: Status post seizure. COMPARISON: 09/13/2019. TECHNIQUE: CT examination of the head was performed with 3 mm thick axial sections without intravenous contrast. Images were obtained from the vertex of the skull through the skull base, and I examined the images with the brain and bone windows. Please note that all CT scans at this facility use dose modulation, iterative reconstruction, and/or weight-based dosing when appropriate to reduce radiation dose to as low as reasonably achievable. FINDINGS: The brain is normal in appearance for the patient`s age on today`s study, with no sign of mass lesion, mass effect, hemorrhage, or edema. The ventricles and sulci are normal in appearance for the patient`s age. Nothing seen to correlate with the history of seizures. No sign of any midline developmental abnormality, migrational abnormality, or abnormality of myelination or gyral formation. Normal appearance of the medial temporal lobes. MRI has a higher sensitivity for structural abnormalities related to seizures. The visualized portions of the orbits are normal in appearance. The visualized paranasal sinuses and mastoids are clear. The osseous structures are normal in their appearance with no sign of abnormality in the skull base or calvarium. IMPRESSION: Normal noncontrast CT of the head for the patient`s age. Nothing seen to correlate with history of seizures. Please note that all CT scans at this facility use dose modulation, iterative reconstruction, and/or weight-based dosing when appropriate to reduce radiation dose to as low as reasonably achievable. Dictated by Roberth Davis MD @ Oct 02 2019 4:19AM Signed by Dr. Roberth Davis @ Oct 02 2019 4:23AM
--- NOTE | 2019-10-02 04:41 | EDM.PDOC ---
ED HPI GENERAL MEDICAL PROBLEM - General Chief Complaint: Neuro Symptoms/Deficits Stated Complaint: SEIZURE Time Seen by Provider: 10/02/19 04:40 - History of Present Illness INITIAL COMMENTS - FREE TEXT/NARRATIVE: HISTORY AND PHYSICAL: History of present illness: Patient's a 24-year-old female with history of seizure disorder was medically noncompliant and has been off her seizure medications for greater than a year presents status post seizure was witnessed without associated trauma at a constitution party tonight. Review of systems: As per history of present illness and below otherwise all systems reviewed and negative. Past medical history: As per history of present illness and as reviewed below otherwise noncontributory. Surgical history: As per history of present illness and as reviewed below otherwise noncontributory. Social history: No reported history of drug or alcohol abuse. Family history: As per history of present illness and as reviewed below otherwise noncontributory. Physical exam: HEENT: Atraumatic, normocephalic, pupils reactive, negative for conjunctival pallor or scleral icterus, mucous membranes moist, throat clear, neck supple, nontender, trachea midline. Lungs: Clear to auscultation, breath sounds equal bilaterally, chest nontender. Heart: S1S2, regular, negative for clicks, rubs, or JVD. Abdomen: Soft, nondistended, nontender. Negative for masses or hepatosplenomegaly. Negative for costovertebral tenderness. Pelvis: Stable nontender. Genitourinary: Deferred. Rectal: Deferred. Extremities: Atraumatic, negative for cords or calf pain. Neurovascular unremarkable. Neuro: Awake, alert, oriented. Cranial nerves II through XII unremarkable. Cerebellum unremarkable. Motor and sensory unremarkable throughout. Exam nonfocal. Diagnostics: CBC CMP UA hCG urine tox CT brain C-spine chest x-ray Therapeutics: IV O2 monitor Impression: #1 seizure with known seizure disorder #2 medical noncompliance Definitive disposition and diagnosis as appropriate pending reevaluation and review of above. 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: Reports: Cervical Collar, IV/IO neck;left chest Pain Score (Numeric/FACES): 10 - Related Data Allergies Allergy/AdvReac Type Severity Reaction Status Date / Time acetaminophen Allergy Vomiting Verified 10/02/19 02:47 cinnamon Allergy Anaphylactic Verified 10/02/19 02:47 Shock codeine Allergy Anaphylactic Verified 10/02/19 02:47 Shock ibuprofen Allergy Vomiting Verified 10/02/19 02:47 peanut Allergy Anaphylactic Verified 10/02/19 02:47 Shock Penicillins Allergy Vomiting Verified 10/02/19 02:47 Home Meds: Home Meds Albuterol [IJD: Ventolin HFA] 1 - 2 puff INH Q4H PRN 03/29/17 [History] Past Medical History HEENT History: Reports: None Cardiovascular History: Reports: None Respiratory History: Reports: Asthma Gastrointestinal History: Reports: None Genitourinary History: Reports: None 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: , 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 , 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) 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/04/17, on bc now- last depo shot 2 wks ago Musculoskeletal History: Reports: Fracture Other Musculoskeletal History: L ankle Neurological History: Reports: Seizure, 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) Other Neuro History: Epilepsy Psychiatric History: Reports: Anxiety, Bipolar, Depression, PTSD, Suicidal Ideation Endocrine/Metabolic History: Reports: None Hematologic History: Reports: None Immunologic History: Reports: None Oncologic (Cancer) History: Reports: None Dermatologic History: Reports: None - Infectious Disease History Infectious Disease History: Reports: None - Past Surgical History Head Surgeries/Procedures: Reports: None HEENT Surgical History: Reports: None Musculoskeletal Surgical History: Reports: None Social & Family History - Family History Family Medical History: Noncontributory Other Dermatologic Family History: pt adopted, unknown fam hx - Tobacco Use Smoking Status *Q: Never Smoker - Caffeine Use Caffeine Use: Reports: Coffee, Energy Drinks - Recreational Drug Use Recreational Drug Use: No ED ROS GENERAL - Review of Systems Review Of Systems: Comprehensive ROS is negative, except as noted in HPI. ED EXAM, GENERAL - Physical Exam Exam: See Below (See dictation) Course - Vital Signs Last Recorded V/S: Last Vital Signs Temp 36.2 C 10/02/19 02:41 Pulse 102 H 10/02/19 03:56 Resp 18 10/02/19 03:56 BP 115/68 10/02/19 03:56 Pulse Ox 97 10/02/19 03:56 - Orders/Labs/Meds Orders: Active Orders 24 hr Category Date Time Status EKG Documentation Completion [RC] STAT Care 10/02/19 02:47 Active Labs: Laboratory Tests 10/02/19 10/02/19 10/02/19 Range/Units 02:56 02:56 03:10 WBC 10.69 (4.0-11.0) K/uL RBC 4.47 (4.30-5.90) M/uL Hgb 10.1 L (12.0-16.0) g/dL Hct 32.6 L (36.0-46.0) % MCV 72.9 L (80.0-98.0) fL MCH 22.6 L (27.0-32.0) pg MCHC 31.0 (31.0-37.0) g/dL RDW Std Deviation 43.1 (28.0-62.0) fl RDW Coeff of Volodymyr 16 H (11.0-15.0) % Plt Count 333 (150-400) K/uL MPV 10.20 (7.40-12.00) fL Neut % (Auto) 62.8 (48.0-80.0) % Lymph % (Auto) 28.6 (16.0-40.0) % [place] % (Auto) 6.9 (0.0-15.0) % Eos % (Auto) 1.4 (0.0-7.0) % Baso % (Auto) 0.3 (0.0-1.5) % Neut # (Auto) 6.7 H (1.4-5.7) K/uL Lymph # (Auto) 3.1 H (0.6-2.4) K/uL [place] # (Auto) 0.7 (0.0-0.8) K/uL Eos # (Auto) 0.2 (0.0-0.7) K/uL Baso # (Auto) 0.0 (0.0-0.1) K/uL Nucleated RBC % 0.0 /100WBC Nucleated RBCs # 0 K/uL Sodium 137 (136-145) mmol/L Potassium 3.4 L (3.5-5.1) mmol/L Chloride 102 (98-107) mmol/L Carbon Dioxide 21.9 (21.0-32.0) mmol/L BUN 10 (7.0-18.0) mg/dL Creatinine 0.7 (0.6-1.0) mg/dL Est Cr Clr Drug Dosing TNP Estimated GFR (MDRD) > 60.0 ml/min Glucose 110 H (74-106) mg/dL Calcium 8.2 L (8.5-10.1) mg/dL Total Bilirubin 0.1 L (0.2-1.0) mg/dL AST 29 (15-37) IU/L ALT 34 (14-63) IU/L Alkaline Phosphatase 91 (46-116) U/L Total Protein 7.1 (6.4-8.2) g/dL Albumin 3.7 (3.4-5.0) g/dL Globulin 3.4 (2.6-4.0) g/dL Albumin/Globulin Ratio 1.1 (0.9-1.6) Urine Color YELLOW Urine Appearance CLEAR Urine pH 6.0 (5.0-8.0) Ur Specific [place] <= 1.005 (1.001-1.035) Urine Protein NEGATIVE (NEGATIVE) mg/dL Urine Glucose (UA) NEGATIVE (NEGATIVE) mg/dL Urine Ketones NEGATIVE (NEGATIVE) mg/dL Urine Occult Blood TRACE-INTACT H (NEGATIVE) Urine Nitrite NEGATIVE (NEGATIVE) Urine Bilirubin NEGATIVE (NEGATIVE) Urine Urobilinogen 0.2 (<2.0) EU/dL Ur Leukocyte Esterase NEGATIVE (NEGATIVE) Urine RBC 0-2 (0-2/HPF) Urine WBC 0-1 (0-5/HPF) Ur Epithelial Cells RARE (NONE-FEW) Urine Bacteria RARE (NEGATIVE) Urine HCG, Qual (NEGATIVE) Urine Opiates Screen (NEGATIVE) Ur Oxycodone Screen (NEGATIVE) Urine Methadone Screen (NEGATIVE) Ur Barbiturates Screen (NEGATIVE) Ur Phencyclidine Scrn (NEGATIVE) Ur Amphetamine Screen (NEGATIVE) U Methamphetamines Scrn (NEGATIVE) U Benzodiazepines Scrn (NEGATIVE) U Cocaine Metab Screen (NEGATIVE) U Marijuana (THC) Screen (NEGATIVE) 10/02/19 10/02/19 Range/Units 03:10 03:10 WBC (4.0-11.0) K/uL RBC (4.30-5.90) M/uL Hgb (12.0-16.0) g/dL Hct (36.0-46.0) % MCV (80.0-98.0) fL MCH (27.0-32.0) pg MCHC (31.0-37.0) g/dL RDW Std Deviation (28.0-62.0) fl RDW Coeff of Volodymyr (11.0-15.0) % Plt Count (150-400) K/uL MPV (7.40-12.00) fL Neut % (Auto) (48.0-80.0) % Lymph % (Auto) (16.0-40.0) % [place] % (Auto) (0.0-15.0) % Eos % (Auto) (0.0-7.0) % Baso % (Auto) (0.0-1.5) % Neut # (Auto) (1.4-5.7) K/uL Lymph # (Auto) (0.6-2.4) K/uL [place] # (Auto) (0.0-0.8) K/uL Eos # (Auto) (0.0-0.7) K/uL Baso # (Auto) (0.0-0.1) K/uL Nucleated RBC % /100WBC Nucleated RBCs # K/uL Sodium (136-145) mmol/L Potassium (3.5-5.1) mmol/L Chloride (98-107) mmol/L Carbon Dioxide (21.0-32.0) mmol/L BUN (7.0-18.0) mg/dL Creatinine (0.6-1.0) mg/dL Est Cr Clr Drug Dosing Estimated GFR (MDRD) ml/min Glucose (74-106) mg/dL Calcium (8.5-10.1) mg/dL Total Bilirubin (0.2-1.0) mg/dL AST (15-37) IU/L ALT (14-63) IU/L Alkaline Phosphatase (46-116) U/L Total Protein (6.4-8.2) g/dL Albumin (3.4-5.0) g/dL Globulin (2.6-4.0) g/dL Albumin/Globulin Ratio (0.9-1.6) Urine Color Urine Appearance Urine pH (5.0-8.0) Ur Specific [place] (1.001-1.035) Urine Protein (NEGATIVE) mg/dL Urine Glucose (UA) (NEGATIVE) mg/dL Urine Ketones (NEGATIVE) mg/dL Urine Occult Blood (NEGATIVE) Urine Nitrite (NEGATIVE) Urine Bilirubin (NEGATIVE) Urine Urobilinogen (<2.0) EU/dL Ur Leukocyte Esterase (NEGATIVE) Urine RBC (0-2/HPF) Urine WBC (0-5/HPF) Ur Epithelial Cells (NONE-FEW) Urine Bacteria (NEGATIVE) Urine HCG, Qual NEGATIVE (NEGATIVE) Urine Opiates Screen NEGATIVE (NEGATIVE) Ur Oxycodone Screen NEGATIVE (NEGATIVE) Urine Methadone Screen NEGATIVE (NEGATIVE) Ur Barbiturates Screen NEGATIVE (NEGATIVE) Ur Phencyclidine Scrn NEGATIVE (NEGATIVE) Ur Amphetamine Screen NEGATIVE (NEGATIVE) U Methamphetamines Scrn NEGATIVE (NEGATIVE) U Benzodiazepines Scrn NEGATIVE (NEGATIVE) U Cocaine Metab Screen NEGATIVE (NEGATIVE) U Marijuana (THC) Screen NEGATIVE (NEGATIVE) Departure - Departure Time of Disposition: 04:40 Disposition: Home, Self-Care 01 Condition: Good Clinical Impression: Seizure disorder, Medical non-compliance, Encounter for medical screening examination - Discharge Information Referrals: PCP,None [Primary Care Provider] - Additional Instructions: The following information is given to patients seen in the emergency department who are being discharged to home. This information is to outline your options for follow-up care. We provide all patients seen in our emergency department with a follow-up referral. The need for follow-up, as well as the timing and circumstances, are variable depending upon the specifics of your emergency department visit. If you don't have a primary care physician on staff, we will provide you with a referral. We always advise you to contact your personal physician following an emergency department visit to inform them of the circumstance of the visit and for follow-up with them and/or the need for any referrals to a consulting specialist. The emergency department will also refer you to a specialist when appropriate. This referral assures that you have the opportunity for followup care with a specialist. All of these measure are taken in an effort to provide you with optimal care, which includes your followup. Under all circumstances we always encourage you to contact your private physician who remains a resource for coordinating your care. When calling for followup care, please make the office aware that this follow-up is from your recent emergency room visit. If for any reason you are refused follow-up, please contact the [facility] emergency department at and asked to speak to the emergency department charge nurse. Follow-up primary medical doctor return as needed as discussed seizure precautions as discussed - My Orders Last 24 Hours: My Active Orders 10/02/19 02:47 EKG Documentation Completion [RC] STAT - Assessment/Plan Last 24 Hours: My Active Orders 10/02/19 02:47 EKG Documentation Completion [RC] STAT
[2019-10-02 04:49] VITALS: BP 110/56; PULSE 100
== END 2019-10-02 04:45 | disposition home or self-care (01) ==
LOC: MW.ED 02:41
DX: G40.909 Epilepsy, unspecified, not intractable, without status epilepticus (principal); J45.909 Unspecified asthma, uncomplicated; Z91.14 Patient's other noncompliance with medication regimen; Z88.6 Allergy status to analgesic agent; Z91.018 Allergy to other foods; Z88.5 Allergy status to narcotic agent; Z91.010 Allergy to peanuts; Z88.0 Allergy status to penicillin; Z79.899 Other long term (current) drug therapy
CPT/HCPCS: 36415; 70450; 70450-26; 71045; 71045-26; 72125; 72125-26; 80053; 80305-QW; 81001; 81025; 85025; 93005; 99285-25

== ENCOUNTER 2020-01-23 08:46 | Emergency (ER) | payer OTHER ==
--- NOTE | 2020-01-23 10:36 | EDM.PDOC ---
ED HPI GENERAL MEDICAL PROBLEM - General Chief Complaint: Respiratory Problem Stated Complaint: SOB Time Seen by Provider: 01/23/20 10:10 Source of Information: Reports: Patient History Limitations: Reports: No Limitations - History of Present Illness INITIAL COMMENTS - FREE TEXT/NARRATIVE: HISTORY AND PHYSICAL: History of present illness: Patient is a 24-year-old female who presents to the ED today with concern of sore throat, "ear popping ", and cough since this morning. Patient states she does have a history of asthma and feels like the cough makes her feels like she cannot take a deep breath in but does not describe this of feeling short of breath. Patient states she has an albuterol inhaler at home which she used 1 time today and states she had mild relief of symptoms. Patient states that she has a history of asthma which has been mild and only has an albuterol inhaler that she uses occasionally at home. Patient denies any other health history or any other symptoms or concerns. Patient denies fever, chills, chest pain, shortness of breath. Denies headache, neck stiff ness, change in vision, syncope, or near syncope. Denies nausea, vomiting, abdominal pain, diarrhea, constipation, or dysuria. Has not noted any blood in urine or stool. Patient has been eating and drinking appropriately. Review of systems: As per history of present illness and below otherwise all systems reviewed and negative. Past medical history: As per history of present illness and as reviewed below otherwise noncontributory. Surgical history: As per history of present illness and as reviewed below otherwise noncontributory. Social history: See social history for further information Family history: As per history of present illness and as reviewed below otherwise noncontributory. Physical exam: General: Patient is alert, oriented, and in no acute distress. Patient sitting comfortably on exam table. HEENT: Atraumatic, normocephalic, pupils equal and reactive bilaterally, negative for conjunctival pallor or scleral icterus, mucous membranes moist, TMs normal bilaterally, throat mildly erythematous without exudate, uvula midline, neck supple, nontender, trachea midline. No drooling or trismus noted. No meningeal signs. No hot potato voice noted. Lungs: Clear to auscultation, breath sounds equal bilaterally, chest nontender. Heart: S1S2, regular rate and rhythm without overt murmur Abdomen: Soft, nondistended, nontender. Negative for masses or hepatosplenomegaly. Negative for costovertebral tenderness. Pelvis: Stable nontender. Genitourinary: Deferred. Rectal: Deferred. Skin: Intact, warm, dry. No lesions or rashes noted. Extremities: Atraumatic, negative for cords or calf pain. Neurovascular unremarkable. Neuro: Awake, alert, oriented. Cranial nerves II through XII unremarkable. Cerebellum unremarkable. Motor and sensory unremarkable throughout. Exam nonfocal. Notes: Discussed importance for follow-up with a primary care provider. Voices understanding and is agreeable to plan of care. Denies any further questions or concerns at this time. Diagnostics: Influenza, Strep, CXR, Hcg Therapeutics: None Prescription: Medrol dose pack Impression: Cough H/O asthma Plan: 1. Take medication as prescribed. You can alternate ibuprofen and Tylenol as directed for pain and discomfort. 2. Follow-up with the primary care provider as discussed. Return to the ED as needed and as discussed. Definitive disposition and diagnosis as appropriate pending reevaluation and review of above. Generalized Body Aches Pain Score (Numeric/FACES): 8 - Related Data Allergies Allergy/AdvReac Type Severity Reaction Status Date / Time acetaminophen Allergy Vomiting Verified 01/23/20 09:13 cinnamon Allergy Anaphylactic Verified 01/23/20 09:13 Shock codeine Allergy Anaphylactic Verified 01/23/20 09:13 Shock ibuprofen Allergy Vomiting Verified 01/23/20 09:13 peanut Allergy Anaphylactic Verified 01/23/20 09:13 Shock Penicillins Allergy Vomiting Verified 01/23/20 09:13 Home Meds: Home Meds Albuterol [IJD: Ventolin HFA] 1 - 2 puff INH Q4H PRN 03/29/17 [History] Past Medical History HEENT History: Reports: None Cardiovascular History: Reports: None Respiratory History: Reports: Asthma Gastrointestinal History: Reports: None Genitourinary History: Reports: None 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: , 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 , 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, on bc now- last depo shot 2 wks ago Musculoskeletal History: Reports: Fracture Other Musculoskeletal History: L ankle Neurological History: Reports: Seizure, 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) Other Neuro History: Epilepsy Psychiatric History: Reports: Anxiety, Bipolar, Depression, PTSD Endocrine/Metabolic History: Reports: None Hematologic History: Reports: None Immunologic History: Reports: None Oncologic (Cancer) History: Reports: None Dermatologic History: Reports: None - Infectious Disease History Infectious Disease History: Reports: None - Past Surgical History Head Surgeries/Procedures: Reports: None HEENT Surgical History: Reports: None Respiratory Surgical History: Reports: None Musculoskeletal Surgical History: Reports: None Social & Family History - Family History Family Medical History: Noncontributory Other Dermatologic Family History: pt adopted, unknown fam hx - Tobacco Use Smoking Status *Q: Never Smoker Second Hand Smoke Exposure: No - Caffeine Use Caffeine Use: Reports: Coffee, Energy Drinks, Soda - Recreational Drug Use Recreational Drug Use: No ED ROS GENERAL - Review of Systems Review Of Systems: Comprehensive ROS is negative, except as noted in HPI. ED EXAM, GENERAL - Physical Exam Exam: See Below (see dictation) Course - Vital Signs Last Recorded V/S: Last Vital Signs Temp 97.8 F 01/23/20 11:34 Pulse 103 H 01/23/20 12:10 Resp 18 01/23/20 12:10 BP 111/73 01/23/20 12:10 Pulse Ox 95 01/23/20 12:10 - Orders/Labs/Meds Orders: Active Orders 24 hr Category Date Time Status EKG Documentation Completion [RC] STAT Care 01/23/20 10:32 Active CULTURE STREP A CONFIRMATION [RM] Stat Lab 01/23/20 10:37 Results STREP SCRN A RAPID W CULT CONF [RM] Stat Lab 01/23/20 10:37 Results Isolation [COMM] Routine Oth 01/23/20 10:11 Active Labs: Laboratory Tests 01/23/20 Range/Units 10:45 Urine HCG, Qual NEGATIVE (NEGATIVE) Departure - Departure Time of Disposition: 12:12 Disposition: Home, Self-Care 01 Clinical Impression: Cough, History of asthma - Discharge Information Referrals: PCP,None [Primary Care Provider] - Forms: ED Department Discharge Additional Instructions: The following information is given to patients seen in the emergency department who are being discharged to home. This information is to outline your options for follow-up care. We provide all patients seen in our emergency department with a follow-up referral. The need for follow-up, as well as the timing and circumstances, are variable depending upon the specifics of your emergency department visit. If you don't have a primary care physician on staff, we will provide you with a referral. We always advise you to contact your personal physician following an emergency department visit to inform them of the circumstance of the visit and for follow-up with them and/or the need for any referrals to a consulting specialist. The emergency department will also refer you to a specialist when appropriate. This referral assures that you have the opportunity for follow-up care with a specialist. All of these measure are taken in an effort to provide you with optimal care, which includes your follow-up. Under all circumstances we always encourage you to contact your private physician who remains a resource for coordinating your care. When calling for follow-up care, please make the office aware that this follow-up is from your recent emergency room visit. If for any reason you are refused follow-up, please contact the [facility] Emergency Department at and asked to speak to the emergency department charge nurse. [facility] [address] [place] [id number] [facility] [address] [place] [id number] 1. Take medication as prescribed. You can alternate ibuprofen and Tylenol as directed for pain and discomfort. 2. Follow-up with the primary care provider as discussed. Return to the ED as needed and as discussed. Sepsis Event Note - Evaluation Sepsis Screening Result: No Definite Risk - Focused Exam Vital Signs: Vital Signs Temp Pulse Resp BP Pulse Ox 01/23/20 12:10 103 H 18 111/73 95 01/23/20 11:34 97.8 F 97 118/73 97 01/23/20 10:05 99 20 113/70 98 01/23/20 09:06 97.8 F 107 H 20 122/71 96 Date Exam was Performed: 01/23/20 Time Exam was Performed: 12:12 - My Orders Last 24 Hours: My Active Orders 01/23/20 10:11 Isolation [COMM] Routine 01/23/20 10:32 EKG Documentation Completion [RC] STAT 01/23/20 10:37 CULTURE STREP A CONFIRMATION [RM] Stat STREP SCRN A RAPID W CULT CONF [RM] Stat - Assessment/Plan Last 24 Hours: My Active Orders 01/23/20 10:11 Isolation [COMM] Routine 01/23/20 10:32 EKG Documentation Completion [RC] STAT 01/23/20 10:37 CULTURE STREP A CONFIRMATION [RM] Stat STREP SCRN A RAPID W CULT CONF [RM] Stat
--- NOTE | 2020-01-23 12:05 | CR ---
Chest: 2 views of the chest were obtained. Comparison: Prior chest x-ray of 10/02/19. Heart size and mediastinum are normal. Lungs are clear with no acute parenchymal change. Bony structures are unremarkable. Impression: 1. Nothing acute is seen on 2 view chest x-ray. Diagnostic code #1 Study was dictated in MDT
[2020-01-23 12:12] VITALS: BP 111/73; PULSE 103
== END 2020-01-23 12:23 | disposition home or self-care (01) ==
LOC: MW.ED 08:46
DX: R05 Cough (principal); J45.909 Unspecified asthma, uncomplicated; Z88.8 Allergy status to other drugs, medicaments and biological substances; Z88.5 Allergy status to narcotic agent; Z88.0 Allergy status to penicillin; Z91.010 Allergy to peanuts; Z91.018 Allergy to other foods
CPT/HCPCS: 71046; 71046-26; 81025; 87081; 87804; 87880-QW; 93005; 99285-25

== ENCOUNTER 2023-08-26 13:29 | Observation (INO) | payer MEDICAID, OTHER ==
[2023-08-26] MEDS ORDERED: Sodium Chloride 0.9% 10 ML Syringe FLUSH PRN (13:34)
[2023-08-26] MEDS ORDERED: Sodium Chloride 0.9% 2.5 ML Syringe FLUSH PRN (13:34)
[2023-08-26 14:20] LABS: BASOPHILS ABSOLUTE AUTO 0.04 K/uL (0.00-0.20); BASOPHILS PERCENT AUTO 0.4 % (0.0-1.0); EOSINOPHILS ABSOLUTE AUTO 0.15 K/uL (0.00-0.45); EOSINOPHILS PERCENT AUTO 1.6 % (0.0-6.0); HEMATOCRIT 39.9 % (37.0-47.0); HEMOGLOBIN 12.8 g/dL (12.0-16.0); IMMATURE GRAN ABSOLUTE AUTO 0.02 K/uL (0.00-0.05); IMMATURE GRAN PERCENT AUTO 0.2 % (0.0-0.4); LYMPHOCYTES ABSOLUTE AUTO 2.99 K/uL (1.00-4.80); LYMPHOCYTES PERCENT AUTO 31.8 % (24.0-44.0); MEAN CORPUSCULAR HEMOGLOBIN 24.5 pg (28.0-32.0); MEAN CORPUSCULAR HGB CONC 32.1 g/dL (32.0-36.0); MEAN CORPUSCULAR VOLUME 76.4 fL (83.0-99.0); MEAN PLATELET VOLUME 10.6 fL (9.4-12.3); MONOCYTES ABSOLUTE AUTO 0.76 K/uL (0.00-0.80); MONOCYTES PERCENT AUTO 8.1 % (0.0-8.0); NEUTROPHILS ABSOLUTE AUTO 5.44 K/uL (1.80-7.70); NEUTROPHILS PERCENT AUTO 57.9 % (41.0-71.0); PLATELET COUNT,PLT 322 K/uL (150-400); RED BLOOD CELL COUNT 5.22 M/uL (4.10-5.30)
[2023-08-26 14:22] LABS: INR 0.98 (0.86-1.11)
[2023-08-26 14:26] LABS: A/G RATIO 1.1 (0.9-1.6); ALANINE AMINOTRANSFERASE,ALT 30 IU/L (14-63); ALBUMIN 4.1 g/dL (3.4-5.0); ALKALINE PHOSPHATASE 93 U/L (46-116); ASPARTATE AMNIOTRANSFERASE,AST 16 IU/L (15-37); BILIRUBIN TOTAL 0.3 mg/dL (0.2-1.0); BLOOD UREA NITROGEN,BUN 13 mg/dL (7.0-18.0); CALCIUM 8.7 mg/dL (8.5-10.1); CARBON DIOXIDE,CO2 24.3 mmol/L (21.0-32.0); CHLORIDE,CL 105 mmol/L (98-107); CREATININE 0.7 mg/dL (0.6-1.0); GLUCOSE RANDOM 91 mg/dL (74-106); SODIUM,NA 137 mmol/L (136-145)
[2023-08-26 14:27] LABS: ESTIMATED GFR 121 mL/min (>60)
[2023-08-26] MEDS ORDERED: diphenhydrAMINE 50 MG/ML SDV IVPUSH ONE (15:00)
[2023-08-26] MEDS ORDERED: Sodium Chloride 0.9% 1,000 ML IV ONE (15:03)
[2023-08-26] MEDS ORDERED: Metoclopramide 10 MG/2 ML SDV IVPUSH ONE (15:03)
[2023-08-26 16:18] LABS: AMPHETAMINES SCREEN, URINE NEGATIVE (CUTOFF=500); BARBITURATE SCREEN,URINE NEGATIVE (CUTOFF=200); BENZODIAZEPINES SCREEN,URINE NEGATIVE (CUTOFF=150); BUPRENORPHINE SCREEN,URINE NEGATIVE (CUTOFF=10); METHADONE SCREEN, URINE NEGATIVE (CUTOFF=200); METHAMPHETAMINES SCREEN, URINE NEGATIVE (CUTOFF=500); OXYCODONE SCREEN,URINE NEGATIVE (CUT0FF=100); PCP SCREEN,URINE NEGATIVE (CUTOFF=25); PROPOXYPHENE SCREEN,URINE NEGATIVE (CUTOFF=300); THC SCREEN,URINE 20 NG/ML NEGATIVE (CUTOFF=50)
[2023-08-26] MEDS ORDERED: Ondansetron 4 MG/2 ML SDV IVPUSH PRN (18:49)
[2023-08-26] MEDS ORDERED: Albuterol/Ipratropium 3.0-0.5 MG/3 ML Neb Soln NEB PRN (18:49)
[2023-08-26] MEDS: Naproxen 500 MG Tab PO PRN (19:50)
[2023-08-27 06:20] LABS: BASOPHILS ABSOLUTE AUTO 0.02 K/uL (0.00-0.20); BASOPHILS PERCENT AUTO 0.3 % (0.0-1.0); EOSINOPHILS ABSOLUTE AUTO 0.19 K/uL (0.00-0.45); EOSINOPHILS PERCENT AUTO 2.7 % (0.0-6.0); HEMATOCRIT 37.7 % (37.0-47.0); IMMATURE GRAN ABSOLUTE AUTO 0.02 K/uL (0.00-0.05); IMMATURE GRAN PERCENT AUTO 0.3 % (0.0-0.4); LYMPHOCYTES ABSOLUTE AUTO 2.31 K/uL (1.00-4.80); LYMPHOCYTES PERCENT AUTO 32.9 % (24.0-44.0); MEAN CORPUSCULAR HEMOGLOBIN 24.7 pg (28.0-32.0); MEAN CORPUSCULAR HGB CONC 31.8 g/dL (32.0-36.0); MEAN CORPUSCULAR VOLUME 77.7 fL (83.0-99.0); MEAN PLATELET VOLUME 10.3 fL (9.4-12.3); MONOCYTES PERCENT AUTO 8.5 % (0.0-8.0); NEUTROPHILS ABSOLUTE AUTO 3.89 K/uL (1.80-7.70); NEUTROPHILS PERCENT AUTO 55.3 % (41.0-71.0); PLATELET COUNT,PLT 269 K/uL (150-400); RED BLOOD CELL COUNT 4.85 M/uL (4.10-5.30); WHITE BLOOD CELL COUNT,WBC 7.03 K/uL (3.9-11.3)
[2023-08-27 06:52] LABS: HEMOGLOBIN A1C 5.3 %
[2023-08-27 07:24] LABS: ALBUMIN 3.3 g/dL (3.4-5.0); BILIRUBIN TOTAL 0.2 mg/dL (0.2-1.0); CALCIUM 8.5 mg/dL (8.5-10.1); CARBON DIOXIDE,CO2 22.6 mmol/L (21.0-32.0); CREATININE 0.7 mg/dL (0.6-1.0); EST CRCL DRUG DOSING (CG) 85.94 mL/min; PROTEIN TOTAL,TP 6.6 g/dL (6.4-8.2); TSH ULTRASENSITIVE 1.08 uIU/mL (0.36-3.74)
[2023-08-27] MEDS ORDERED: Gadobenate Dimeglumine 529 MG/ML 20 ML SDV IVPUSH STA (07:40)
[2023-08-27] MEDS: Naproxen 500 MG Tab PO PRN (10:35)
[2023-08-27 12:08] VITALS: BP 128/83; PULSE 79
== END 2023-08-27 12:45 | disposition home or self-care (01) ==
LOC: MW.ED 13:29 → MW.MS 17:48
PROVIDERS: ADMIT Internal Medicine; ATTEND Internal Medicine
DX: G43.909 Migraine, unspecified, not intractable, without status migrainosus (principal); R20.2 Paresthesia of skin; J45.909 Unspecified asthma, uncomplicated; F41.9 Anxiety disorder, unspecified; F32.9 Major depressive disorder, single episode, unspecified; G40.909 Epilepsy, unspecified, not intractable, without status epilepticus; F43.10 Post-traumatic stress disorder, unspecified; Z88.5 Allergy status to narcotic agent; Z88.0 Allergy status to penicillin; Z88.8 Allergy status to other drugs, medicaments and biological substances; Z91.010 Allergy to peanuts; Z79.899 Other long term (current) drug therapy
CPT/HCPCS: 36415; 70450; 70553; 80053; 80061; 80305; 82607; 82947; 83036; 84443; 85025; 85610; 86592; 93005; 96361; 96374; 96375; 99285; A9270; A9577; G0378; J1200; J2765; J3490; J7030; 93010; 99284

== ENCOUNTER 2024-07-09 08:32 | Emergency (ER) | payer OTHER, MEDICAID ==
[2024-07-09 09:31] LABS: BASOPHILS ABSOLUTE AUTO 0.03 K/uL (0.00-0.20); BASOPHILS PERCENT AUTO 0.3 % (0.0-1.0); EOSINOPHILS ABSOLUTE AUTO 0.14 K/uL (0.00-0.45); EOSINOPHILS PERCENT AUTO 1.3 % (0.0-6.0); HEMATOCRIT 39.4 % (37.0-47.0); HEMOGLOBIN 12.4 g/dL (12.0-16.0); IMMATURE GRAN ABSOLUTE AUTO 0.04 K/uL (0.00-0.05); IMMATURE GRAN PERCENT AUTO 0.4 % (0.0-0.4); LYMPHOCYTES ABSOLUTE AUTO 1.69 K/uL (1.00-4.80); LYMPHOCYTES PERCENT AUTO 16.1 % (24.0-44.0); MEAN CORPUSCULAR HEMOGLOBIN 25.5 pg (28.0-32.0); MEAN CORPUSCULAR HGB CONC 31.5 g/dL (32.0-36.0); MEAN CORPUSCULAR VOLUME 81.1 fL (83.0-99.0); MEAN PLATELET VOLUME 10.3 fL (9.4-12.3); MONOCYTES ABSOLUTE AUTO 0.73 K/uL (0.00-0.80); MONOCYTES PERCENT AUTO 6.9 % (0.0-8.0); NEUTROPHILS ABSOLUTE AUTO 7.89 K/uL (1.80-7.70); PLATELET COUNT,PLT 252 K/uL (150-400); RED BLOOD CELL COUNT 4.86 M/uL (4.10-5.30); WHITE BLOOD CELL COUNT,WBC 10.52 K/uL (3.9-11.3)
[2024-07-09] MEDS: Ondansetron 4 MG/2 ML SDV IVPUSH ONE (09:32)
[2024-07-09] MEDS: fentaNYL 50 MCG/ML SDV IVPUSH ONE (09:32)
[2024-07-09] MEDS: Ondansetron 4 MG/2 ML SDV ONE (09:33)
[2024-07-09] MEDS: Sodium Chloride 0.9% 2.5 ML Syringe FLUSH PRN (09:33)
[2024-07-09] MEDS: Sodium Chloride 0.9% 10 ML Syringe FLUSH PRN (09:33)
[2024-07-09 10:01] LABS: A/G RATIO 0.9 (0.9-1.6); ALANINE AMINOTRANSFERASE,ALT 33 IU/L (14-63); ALBUMIN 3.3 g/dL (3.4-5.0); ALKALINE PHOSPHATASE 81 U/L (46-116); ASPARTATE AMNIOTRANSFERASE,AST 22 IU/L (15-37); BILIRUBIN TOTAL 0.2 mg/dL (0.2-1.0); BLOOD UREA NITROGEN,BUN 14 mg/dL (7.0-18.0); CALCIUM 8.7 mg/dL (8.5-10.1); CARBON DIOXIDE,CO2 26.3 mmol/L (21.0-32.0); CHLORIDE,CL 103 mmol/L (98-107); CREATININE 0.6 mg/dL (0.6-1.0); ETHANOL BLOOD MEDICAL <3 mg/dL; GLUCOSE RANDOM 105 mg/dL (74-106); LIPASE 21 U/L (16-77); POTASSIUM,K 4.5 mmol/L (3.5-5.1); PROTEIN TOTAL,TP 6.8 g/dL (6.4-8.2); SODIUM,NA 136 mmol/L (136-145)
[2024-07-09 10:03] LABS: ESTIMATED GFR 125 mL/min (>60)
[2024-07-09 10:57] LABS: AMPHETAMINES SCREEN, URINE NEGATIVE (CUTOFF=500); BARBITURATE SCREEN,URINE NEGATIVE (CUTOFF=200); BENZODIAZEPINES SCREEN,URINE NEGATIVE (CUTOFF=150); BUPRENORPHINE SCREEN,URINE NEGATIVE (CUTOFF=10); METHADONE SCREEN, URINE NEGATIVE (CUTOFF=200); METHAMPHETAMINES SCREEN, URINE NEGATIVE (CUTOFF=500); OXYCODONE SCREEN,URINE NEGATIVE (CUT0FF=100); PCP SCREEN,URINE NEGATIVE (CUTOFF=25); THC SCREEN,URINE 20 NG/ML NEGATIVE (CUTOFF=50)
[2024-07-09] MEDS: Cyclobenzaprine 10 MG Tab PO ONE (13:22)
[2024-07-09 13:34] VITALS: BP 103/58; PULSE 75
[2024-07-09] MEDS: Iopamidol 755 MG/ML 500 ML Multipack Bottle IVPUSH STA (15:39)
== END 2024-07-09 13:34 | disposition home or self-care (01) ==
LOC: MW.ED 08:32
DX: S43.401A Unspecified sprain of right shoulder joint, initial encounter (principal); S80.01XA Contusion of right knee, initial encounter; J45.909 Unspecified asthma, uncomplicated; Z90.710 Acquired absence of both cervix and uterus; Z79.899 Other long term (current) drug therapy; Z88.0 Allergy status to penicillin; Z91.010 Allergy to peanuts; Z88.8 Allergy status to other drugs, medicaments and biological substances; Z88.5 Allergy status to narcotic agent; Z91.018 Allergy to other foods; Z75.8 Other problems related to medical facilities and other health care; V49.40XA Driver injured in collision with unspecified motor vehicles in traffic accident, initial encounter
CPT/HCPCS: 36415; 70450; 71260; 72125; 72128; 72131; 73020; 73590; 74177; 80053; 80305; 80307; 83690; 85025; 96374; 96375; 99285; A9270; J2405; J3010; J3490; Q9967; 99284

== ENCOUNTER 2024-10-11 16:08 | Emergency (ER) | payer MEDICAID ==
[2024-10-11] MEDS: Sodium Chloride 0.9% 1,000 ML IV ONE (18:56)
[2024-10-11 19:07] LABS: BASOPHILS ABSOLUTE AUTO 0.04 K/uL (0.00-0.20); BASOPHILS PERCENT AUTO 0.4 % (0.0-1.0); EOSINOPHILS ABSOLUTE AUTO 0.12 K/uL (0.00-0.45); EOSINOPHILS PERCENT AUTO 1.3 % (0.0-6.0); HEMATOCRIT 43.4 % (37.0-47.0); HEMOGLOBIN 14.3 g/dL (12.0-16.0); IMMATURE GRAN ABSOLUTE AUTO 0.01 K/uL (0.00-0.05); IMMATURE GRAN PERCENT AUTO 0.1 % (0.0-0.4); LYMPHOCYTES ABSOLUTE AUTO 2.79 K/uL (1.00-4.80); LYMPHOCYTES PERCENT AUTO 30.1 % (24.0-44.0); MEAN CORPUSCULAR HEMOGLOBIN 26.3 pg (28.0-32.0); MEAN CORPUSCULAR HGB CONC 32.9 g/dL (32.0-36.0); MEAN CORPUSCULAR VOLUME 79.8 fL (83.0-99.0); MEAN PLATELET VOLUME 9.9 fL (9.4-12.3); MONOCYTES ABSOLUTE AUTO 0.53 K/uL (0.00-0.80); MONOCYTES PERCENT AUTO 5.7 % (0.0-8.0); NEUTROPHILS ABSOLUTE AUTO 5.78 K/uL (1.80-7.70); NEUTROPHILS PERCENT AUTO 62.4 % (41.0-71.0); PLATELET COUNT,PLT 319 K/uL (150-400); RED BLOOD CELL COUNT 5.44 M/uL (4.10-5.30); WHITE BLOOD CELL COUNT,WBC 9.27 K/uL (3.9-11.3)
[2024-10-11] MEDS: Lidocaine 4% 1 each Patch TOP STA (19:21)
[2024-10-11] MEDS: Lidocaine 4% 1 each Patch TOP SCH (19:24)
[2024-10-11 19:30] LABS: A/G RATIO 1.1 (0.9-1.6); ALANINE AMINOTRANSFERASE,ALT 29 IU/L (14-63); ALBUMIN 4.2 g/dL (3.4-5.0); ALKALINE PHOSPHATASE 79 U/L (46-116); ASPARTATE AMNIOTRANSFERASE,AST 20 IU/L (15-37); BILIRUBIN TOTAL 0.6 mg/dL (0.2-1.0); BLOOD UREA NITROGEN,BUN 6 mg/dL (7.0-18.0); CALCIUM 9.5 mg/dL (8.5-10.1); CARBON DIOXIDE,CO2 27.7 mmol/L (21.0-32.0); CHLORIDE,CL 103 mmol/L (98-107); CREATININE 0.7 mg/dL (0.6-1.0); EST CRCL DRUG DOSING (CG) 85.18 mL/min; GLUCOSE RANDOM 86 mg/dL (74-106); POTASSIUM,K 3.4 mmol/L (3.5-5.1); PROTEIN TOTAL,TP 8.1 g/dL (6.4-8.2); SODIUM,NA 141 mmol/L (136-145)
[2024-10-11 19:33] LABS: ESTIMATED GFR 120 mL/min (>60)
[2024-10-11 19:53] LABS: APPEARANCE,URINE CLEAR; BILIRUBIN,URINE NEGATIVE (NEGATIVE); COLOR,URINE YELLOW; GLUCOSE,URINE NEGATIVE (NEGATIVE); KETONES,URINE 40 mg/dL (NEGATIVE); LEUKOCYTE ESTERASE,URINE NEGATIVE (NEGATIVE); NITRITE,URINE NEGATIVE (NEGATIVE); OCCULT BLOOD,URINE NEGATIVE (NEGATIVE); PROTEIN,URINE NEGATIVE (NEGATIVE)
[2024-10-11 22:11] VITALS: BP 115/39; PULSE 84
== END 2024-10-11 22:09 | disposition home or self-care (01) ==
LOC: MW.ED 16:08
DX: R07.89 Other chest pain (principal); Z79.899 Other long term (current) drug therapy; Z91.018 Allergy to other foods; Z88.5 Allergy status to narcotic agent; Z88.6 Allergy status to analgesic agent; Z91.010 Allergy to peanuts; Z88.0 Allergy status to penicillin; Z75.8 Other problems related to medical facilities and other health care
CPT/HCPCS: 36415; 71045; 80053; 81003; 81025; 84484; 85025; 87428; 93005; 96360; 99285; A9270; J7030

== ENCOUNTER 2025-04-09 11:31 | Emergency (ER) | payer MEDICAID, OTHER ==
[2025-04-09] MEDS ORDERED: Sodium Chloride 0.9% 10 ML Syringe FLUSH PRN (12:08)
[2025-04-09] MEDS ORDERED: Sodium Chloride 0.9% 2.5 ML Syringe FLUSH PRN (12:08)
[2025-04-09] MEDS ORDERED: Sodium Chloride 0.9% 20 ML SDV IV PRN (12:08)
[2025-04-09 12:13] LABS: BASOPHILS ABSOLUTE AUTO 0.04 K/uL (0.00-0.20); BASOPHILS PERCENT AUTO 0.3 % (0.0-1.0); EOSINOPHILS ABSOLUTE AUTO 0.04 K/uL (0.00-0.45); EOSINOPHILS PERCENT AUTO 0.3 % (0.0-6.0); HEMATOCRIT 41.2 % (37.0-47.0); HEMOGLOBIN 13.3 g/dL (12.0-16.0); IMMATURE GRAN ABSOLUTE AUTO 0.04 K/uL (0.00-0.05); IMMATURE GRAN PERCENT AUTO 0.3 % (0.0-0.4); LYMPHOCYTES ABSOLUTE AUTO 1.64 K/uL (1.00-4.80); LYMPHOCYTES PERCENT AUTO 13.1 % (24.0-44.0); MEAN CORPUSCULAR HEMOGLOBIN 26.8 pg (28.0-32.0); MEAN CORPUSCULAR HGB CONC 32.3 g/dL (32.0-36.0); MEAN CORPUSCULAR VOLUME 82.9 fL (83.0-99.0); MEAN PLATELET VOLUME 9.9 fL (9.4-12.3); MONOCYTES ABSOLUTE AUTO 0.56 K/uL (0.00-0.80); MONOCYTES PERCENT AUTO 4.5 % (0.0-8.0); NEUTROPHILS ABSOLUTE AUTO 10.18 K/uL (1.80-7.70); NEUTROPHILS PERCENT AUTO 81.5 % (41.0-71.0); PLATELET COUNT,PLT 261 K/uL (150-400); RED BLOOD CELL COUNT 4.97 M/uL (4.10-5.30)
[2025-04-09] MEDS: Ondansetron 4 MG/2 ML SDV IVPUSH ONE (12:15)
[2025-04-09] MEDS: Lactated Ringers 1,000 ML IV SCH (12:15)
[2025-04-09 12:37] LABS: A/G RATIO 1.1 (0.9-1.6); ALANINE AMINOTRANSFERASE,ALT 59 IU/L (14-63); ALBUMIN 3.9 g/dL (3.4-5.0); ALKALINE PHOSPHATASE 92 U/L (46-116); ASPARTATE AMNIOTRANSFERASE,AST 27 IU/L (15-37); BILIRUBIN TOTAL 0.3 mg/dL (0.2-1.0); BLOOD UREA NITROGEN,BUN 14 mg/dL (7.0-18.0); CALCIUM 8.7 mg/dL (8.5-10.1); CARBON DIOXIDE,CO2 25.4 mmol/L (21.0-32.0); CHLORIDE,CL 103 mmol/L (98-107); CREATININE 0.6 mg/dL (0.6-1.0); EST CRCL DRUG DOSING (CG) 99.37 mL/min; GLUCOSE RANDOM 114 mg/dL (74-106); POTASSIUM,K 4.5 mmol/L (3.5-5.1); PROTEIN TOTAL,TP 7.4 g/dL (6.4-8.2); SODIUM,NA 136 mmol/L (136-145)
[2025-04-09 12:40] LABS: ESTIMATED GFR 125 mL/min (>60)
[2025-04-09] MEDS: Ketorolac 30 MG/ML SDV IVPUSH ONE (12:48)
[2025-04-09 13:07] LABS: APPEARANCE,URINE CLEAR; BILIRUBIN,URINE NEGATIVE (NEGATIVE); COLOR,URINE YELLOW; GLUCOSE,URINE NEGATIVE (NEGATIVE); KETONES,URINE NEGATIVE (NEGATIVE); LEUKOCYTE ESTERASE,URINE NEGATIVE (NEGATIVE); NITRITE,URINE NEGATIVE (NEGATIVE); OCCULT BLOOD,URINE SMALL (NEGATIVE); PROTEIN,URINE NEGATIVE (NEGATIVE); UROBILINOGEN,URINE 0.2 EU/dL (<2.0)
[2025-04-09 13:14] LABS: EPITHELIAL CELLS,URINE OCCASIONAL (NONE-FEW); WBC,URINE 0-1 (0-5/HPF)
[2025-04-09 13:15] LABS: BACTERIA,URINE RARE (NEGATIVE); MUCUS,URINE LIGHT (NONE-MOD)
[2025-04-09] MEDS: Iopamidol 755 Mg/ML 100 ML Bottle IVPUSH ONE (13:34)
[2025-04-09 13:56] LABS: CANDIDA DNA PROBE NEGATIVE (NEGATIVE); GARDNERELLA DNA PROBE POSITIVE (NEGATIVE); TRICHOMONAS DNA PROBE NEGATIVE (NEGATIVE)
[2025-04-09] MEDS: metroNIDAZOLE/Normal Saline 500 MG in Premix Bag 1 BAG IV ONE (14:13)
[2025-04-09 14:37] LABS: C. TRACHOMATIS BY PCR NOT DETECTED; N. GONORRHOEAE BY PCR NOT DETECTED
[2025-04-09 15:21] VITALS: BP 128/73; PULSE 83
== END 2025-04-09 15:21 | disposition home or self-care (01) ==
LOC: MW.ED 11:31
DX: N76.0 Acute vaginitis (principal); R51.9 Headache, unspecified; Z88.8 Allergy status to other drugs, medicaments and biological substances; Z75.3 Unavailability and inaccessibility of health-care facilities
CPT/HCPCS: 36415; 74177; 74177-26; 80053; 81001; 81025; 82947; 84484; 85025; 86592; 87389; 87480; 87491; 87510; 87591; 87660; 93005; 93010; 96361; 96365; 96375; 99284; 99284-25; J1836; J1885; J2405; J7120; Q9967

== ENCOUNTER 2025-07-25 19:59 | Emergency (ER) | payer MEDICAID ==
[2025-07-25 22:53] VITALS: BP 117/70; PULSE 96
== END 2025-07-25 23:16 | disposition home or self-care (01) ==
LOC: MW.ED 19:59
DX: J40 Bronchitis, not specified as acute or chronic (principal); Z90.710 Acquired absence of both cervix and uterus; Z88.8 Allergy status to other drugs, medicaments and biological substances; Z79.51 Long term (current) use of inhaled steroids; Z79.899 Other long term (current) drug therapy
CPT/HCPCS: 99283; J7620; Q0144; A9270-GY